=== PATIENT | female | born 2000 | race African-American/Black ===

== ENCOUNTER 2025-01-03 15:40 | Emergency (ER) | payer MEDICAID, SELFPAY ==
[2025-01-03 16:02] VITALS: BP 125/81; PULSE 71; RESP 16; TEMP 36.7; O2SAT 100
--- NOTE | 2025-01-03 16:10 | ED.GENADULT ---
HPI - General Adult General Chief complaint: Dental/Oral Stated complaint: Dental History of Present Illness HPI narrative: Genny Hercules Is a 24-year-old female who presents today with complaints of right upper tooth pain that started 2 days ago and woke up today swelling and increased pain to her upper gums. patient denies any fevers or chills denies difficulty swallowing. States that she has not seen a dentist in several years. Related Data Allergies Allergy/AdvReac Type Severity Reaction Status Date / Time No Known Allergies Allergy Verified 01/03/25 16:07 Review of Systems Review of Systems: All systems reviewed & are unremarkable except as noted in HPI and below Exam Narrative: GENERAL: Well-appearing, well-nourished, and in no acute distress. HEAD: Normocephalic, atraumatic. EYES: PERRLA and EOMI. ENT: Nares clear, no rhinorrhea or epistaxis. Mucous membranes moist. Oropharynx without tonsillar hypertrophy exudate or other lesions. + dental decay to right Molar #1, #3, and #4 NECK: Supple. No adenopathy or masses. No carotid bruits or JVD CHEST: Clear to auscultation. No respiratory distress. No wheezes rales or rhonchi HEART: Regular rate and rhythm. No murmur heard. Normal peripheral pulses. EXTREMITIES: Normal range of motion. No edema. SKIN: Warm, dry, no rash. NEURO: No focal deficits. Alert and oriented x3. PSYCH: Normal mood and affect. Course Course Level of Care: Express Care Visit Vital Signs Vital signs: Vital Signs Temperature 36.7 C 01/03/25 16:02 Pulse Rate 71 01/03/25 16:02 Respiratory Rate 16 01/03/25 16:02 Blood Pressure 125/81 01/03/25 16:02 Pulse Oximetry 100 01/03/25 16:02 Oxygen Delivery Room Air 01/03/25 16:02 Temperature 36.7 C 01/03/25 16:02 Pulse Rate 71 01/03/25 16:02 Respiratory Rate 16 01/03/25 16:02 Blood Pressure 125/81 01/03/25 16:02 Pulse Oximetry 100 01/03/25 16:02 Oxygen Delivery Room Air 01/03/25 16:02 Medical Decision Making [facility] Narrative Medical decision making narrative: Patient with worsening dental pain and dental decay. No palpable abscess. No systemic signs or symptoms. Antibiotics course provided. Patient is so will start pt on Amoxicillin Follow-up instructions given for dental/oral surgery clinics. Patient was given return precautions and discharged home in stable condition. Pulse oximetry interpretation: not hypoxic. Disposition: Discharge to home in stable condition. Impression: Acute dental pain, likely due to dental caries. Medical Records Medical records reviewed: Yes I reviewed the external patient's medical records. Vital Signs Vital Signs: Vital Signs Temperature 36.7 C 01/03/25 16:02 Pulse Rate 71 01/03/25 16:02 Respiratory Rate 16 01/03/25 16:02 Blood Pressure 125/81 01/03/25 16:02 Pulse Oximetry 100 01/03/25 16:02 Oxygen Delivery Room Air 01/03/25 16:02 Temperature 36.7 C 01/03/25 16:02 Pulse Rate 71 01/03/25 16:02 Respiratory Rate 16 01/03/25 16:02 Blood Pressure 125/81 01/03/25 16:02 Pulse Oximetry 100 01/03/25 16:02 Oxygen Delivery Room Air 01/03/25 16:02 VItals reviewed by me Discharge Plan Discharge Clinical Impression: Toothache, Dental caries Patient Disposition: Home, Self-Care Condition: Stable Instructions: Antibiotic Form Additional Instructions: Start the Amoxicillin twice daily for 10 days You may try Orajel from over the counter to help with the pain Start taking the Tylenol for pain You may apply warm compresses to the area to help with the inflammation Call to make an appointment with a dentist as discussed Patient Language: Kazakh Prescriptions: New amoxicillin 500 mg capsule 500 mg PO Q12H Qty: 20 0RF acetaminophen [Acetaminophen Extra Strength] 500 mg tablet 1,000 mg PO Q6H PRN (Reason: pain) Qty: 30 0RF Follow-up/Referrals: PHYSICIAN,INSPECTION AND TESTING SUPERVISOR [Primary Care Provider] - Stand Alone Forms: Work/School Release IP Time of Disposition: 16:17
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
--- OUTSIDE RECORDS SUMMARY | 2025-01-03 16:15 | XMS_ITS | Referral Summary ---
Author Organization [facility] Address [address] [place] [address] Care Team Providers Care Press Operator Automatic Name Role Phone Unavailable Primary Care Provider Unavailabl e Source Comments [facility],non-owned Affiliates and Associated Physician Practices is amultiple site organization consisting of ambulatory clinics and hospital sitesin [place] and [place]. This disclosure is being madepursuant to the Care Everywhere program and may not contain all information available regarding this patient. Last updated 18.[facility] Encounters Date Type Department Care Team Description 11/14/2024 2:49 PM METAL PAINTER - 11/14/2024 4:21 PM METAL PAINTER Hospital Encounter [facility] [address] [place] [address] Cony Clinton MD Discharge Disposition: Home or Self Care from Last 3 Months Allergies Active Allergy Reactions Criticality Noted Date Comments [place] Rash,Swelling Medium 10/18/2023 Medications * Be aware [...] Trichomonas infection 06/30/2024 Overview (09/08/2024): Did not picker Rx sent in May ERx sent [...] 02/14/2021 06/24/2024 Encounter for ultrasound 02/14/2021 06/24/2024 Immunizations Name Administration Dates Next Due MMR 06/13/2021() TDAP (7yrs+) 06/13/2021(Deferred: See Comments - Perpt, she already received) Social History Tobacco Use Types Packs/Day Years [...] care, and heating? Not very hard 11/14/2024 [facility] - Occupational [...] place to sleep or slept in a snf (including now)? No 06/24/2024 [place] Depression Scale Answer Date Recorded [place] Depression Scale Total 1 06/24/2024 The thought [...] any time in the past 12 m [facility], were you homeless or living in a snf (including now)? No 11/14/2024 Estimated Date of Delivery Comme nts Yes 12/16/2024 Based on last me nstrual period of 03/11/2024 Sex and Gender Information Value Date Recorded Sex Assigned at Not on file Gender Identity Not on file Sexual Orientation Not on file Last Filed Vital Signs Vital Sign Reading Time Taken Comments Blood Pressure 127/74 11/14/2024 3:31 PM METAL PAINTER Pulse 76 11/14/2024 3:00 PM METAL PAINTER Temperature 37.1 ??C (98.8 ??F) 11/14/2024 3:00 PM CS T Respiratory Rate 19 11/14/2024 3:00 PM METAL PAINTER Oxygen Saturation 99% 11/14/2024 3:00 PM METAL PAINTER Inhaled Oxygen Concentration - - Weight 56.7 kg (125 lb) 09/08/2024 2:01 PM CDT Height 157.5 cm (5' 2 ) 06/24/2024 1:05 PM CDT Body Mass Index 22.86 06/24/2024 1:05 PM CDT Functional Status Functional Status Response Date of Assess ment Is person deaf or have serious hearing difficult y? No 11/14/2024 Is person blind or have serious difficulty seein g? No 11/14/2024 Does person have serious dif ficulty walking/climbing stairs? No 11/14/2024 Does person have difficulty dressing/bathing? No 11/14/2024 Does person have difficulty doing errands alone? No 11/14/2024 Cognitive Status Response Date of Assessm ent Does person have difficulty concentrating/remembering/making decisions? No 11/14/2024 Plan of Treatment Upcoming Encounters Date Type Department Care Team (Late st Contact Info) Description 01/25/2025 Hospital Encounter [facility] [address] [place] [address] Procedures Procedure Name Priority Date/Time Associated Diagnosis Comments IMAGING/RADIOLOGY/XR AY RESULTS ORDER 11/15/2024 11:56 PM METAL PAINTER NONSTRESS TEST Routine 11/14/2024 4:18 PM METAL PAINTER TRICHOMONAS RAPID TEST Routine 11/14/2024 3:55 PM METAL PAINTER Supervision of other normal , antepartum (HCC) CHLAMYDIA + GC AMPLIFIED PROBE STAT 11/14/2024 3:55 PM METAL PAINTER Supervision of other normal , antepartum (HCC) [...] RADIOLOGY XRAY RESULTS ORDER (11/15/2024 11:56 PM METAL PAINTER) Anatomical Region Laterality Modality Other Narrative 11/15/2024 11:56 PM METAL PAINTER Ordered by an unspecified provider. Scanned Document IMAGING * NONSTRESS TEST (11/14/2024 4:18 PM METAL PAINTER) Narrative Irene Draper MD - 11/14/2024 4:18 PM METAL PAINTER Marce Cleary, DO ? 11/14/2024 ??4:25 PM [...] OTHER INFORMATION Jennie Anderson RN Non-Stress Test [facility] Patient Name: Genny Hercules LMP: Patient's last menstrual period was 03/11/2024. Gestational Age: 35w3d as of 11/14/2024 Estimated Date of Delivery: 12/16/24 Indications: Leakage of fluid in NST date: 11/14/2024 NST duration: >20 mins Interpretation: NST: baseline 130 bpm, moderate variability, reactive, no decelerations [place]: no contractions Impression and Plan: FWB reassuring, continue monitoring as scheduled. Marce Cleary, 11/14/2024 4:25 PM Cony Clinton MD OB GYNE ORDERABLES * CHLAMYDIA + GC AMPLIFIED PROBE (11/14/2024 3:55 PM METAL PAINTER) Chlamydia Amplified Probe Negative Negative 11/15/2024 12:16 AM METAL PAINTER [facility] GC Amplified Probe Negative Negative 11/15/2024 12:16 AM METAL PAINTER [facility] Microbiology ENTIRE VAGINA / Unknown Collection / Unknown 11/14/2024 3:55 PM METAL PAINTER 11/14/2024 4:00 PM METAL PAINTER Narrative [facility] - 11/15/2024 12:16 AM METAL PAINTER Results based on detection/no detection of ribosomal RNA by amplified method. Cony Clinton MD LAB - MICROBIOLOGY O RDERABLES Performing Organization Address City/[facility]/ZIP Co de Phone Number [facility] [address] [phone] * TRICHOMONAS RAPID TEST (11/14/2024 3:55 PM METAL PAINTER) Trichomonas Rapid Test Negative Negative 11/14/2024 4:15 PM METAL PAINTER [facility] Microbiology VAGINAL SWAB / Unknown Collection / Unknown 11/14/2024 3:55 PM METAL PAINTER 11/14/2024 4:00 PM METAL PAINTER Cony Clinton MD LAB - MICROBIOLOGY O RDERABLES Performing Organization Address City/[facility]/ZIP Co de Phone Number [facility] [address] [place] [address] * PAP IG LB RFLX HPV APTIMA ASCU (06/24/2024 1:16 PM CDT) Diagnosis Comment 06/29/2024 1:09 PM CDT [facility] ([facility]) Comment: NEGATIVE FOR INTRAEPITHELIAL LESION OR MALIGNANCY. TRICHOMONAS VAGINALIS IS PRESENT. FUNGAL ORGANISMS MORPHOLOGICALLY CONSISTENT WITH LASHAUN SPECIES ARE PRESENT. Specimen Adequacy Comment 024 1:09 PM CDT [facility] ([facility]) Comment: Satisfactory for evaluation. ??Endocervical and/or squamous metaplastic cells (endocervical component) are present. Performed by Comment 06/29/2024 1:09 PM CDT [facility] ([facility]) Comment:Arun Soto totechnologist (ASCP) Comment . 06/29/2024 [...] Automation Comment 06/29/2024 1:09 PM CDT [facility] ([facility]) Comment: This liquid based ThinPrep(R) pap test was screened with the use of an image guided system. Note Comment 06/29/2024 1:09 PM CDT [facility] ([facility]) Comment: The HPV DNA reflex criteria were not met with this specimen result therefore, no HPV testing was performed. Pathology/Cytolo gy ENTIRE ENDOCERVIX / Unknown Collection / Unknown 06/24/2024 1:16 PM CDT 06/24/2024 2:47 PM CDT Narrative [facility] ([facility]) - 06/29/2024 1:09 PM CDT Performed at: ??01 - [facility] [id number] [place] [address], [place], [place] ??[id number] Play Writer: Ross Barrera MD, Phone: ??[phone] Performed at: ??02 - [facility] [address] ??[id number] Play Writer: Rosenda Chicas MD, Phone: ??[phone] Specimen Comment: Source.............Endocervix Specimen Comment: No. of containers..01 ThinPrep Vial Jessica Kelley ASSET ANALYST-[facility] - PATHOLOGY /CYTOLOGY ORDERABLES [facility] ([facility]) [address] [place] [address] * HIV-1 HIV-2 ANTIBODY + HIV P24 AG PANEL (06/24/2024 1:16 PM CDT) HIV1/2 Ab + P24 Ag Non Reactive Non Reactive 06/24/2024 3:29 PM CDT [facility] Blood BLOOD SPECIMEN / Unknown Venipuncture / Unknown 06/24/2024 1:16 PM CDT 06/24/2024 2:49 PM CDT Narrative [facility] - 06/24/2024 3:29 PM CDT No Laboratory evidence of HIV infection. Jessica Kelley ASSET ANALYST-[facility] - CHEMISTRY ORDERABLES Performing Organization Address City/[facility] Co de Phone Number [facility] [address] [place] [phone] * HEPATITIS C ANTIBODY (06/24/2024 1:16 PM CDT) HCV Antibody Screen Non Reactive Non Reactive 06/24/2024 3:29 PM CDT [facility] Blood BLOOD SPECIMEN / Unknown Venipuncture / Unknown 06/24/2024 1:16 PM CDT 06/24/2024 2:49 PM CDT Narrative [facility] - 06/24/2024 3:29 PM CDT Non Reactive - Antibodies to Hepatitis C virus (HCV) were not detected, result does not exclude early acute HCV infection. Jessica Kelley ASSET ANALYST-[facility] - CHEMISTRY ORDERABLES [facility] [address] [place] [address] from Last 3 Months or Most Recently Relevant to Health Maintenance Advance Directives * Full Code (Latest Code Status on File) Date Activated Date Inactivated Comments 06/11/2021 12:06 AM 06/14/2021 3:50 PM * Full Code Date Activated Date Inactivated Comments 06/08/2021 3:37 PM 06/11/2021 12:06 AM
--- OUTSIDE RECORDS SUMMARY | 2025-01-03 16:15 | XMS_ITS | Referral Summary ---
Author Organization [facility] Address [address] [place] [phone] Care Team Providers Care Senior Editor Name Role Phone No, Physician Primary Care Provider [phone] Encounters Date Type Department Care Team Description 12/24/2024 Telephone [facility] [address] [place] [address] Outpatient Health 3rd Floor [address] [place] [phone] Vicenta Dietz 12/17/2024 Telephone [facility] [address] [place] [address] [place] [phone] Marisa Flores MD 12/14/2024 Telephone [facility] [address] [place] [address] Floor [address] [place] [phone] Vicenta Dietz 12/09/2024 6:35 AM KNUCKLER - 12/12/2024 1:01 PM KNUCKLER Hospital Encounter [address] [phone] Epi Guzman MD Russell, Sharman Maurissa, MD Tsai, Stephanie Marie, MD Encounter for induction of labor (Primary Dx) Discharge Disposition: Discharge to home or self care 12/09/2024 11:30 PM KNUCKLER Anesthesia Event [address] [phone] Earl Padilla MD Huang, Dake MD 12/07/[address] [phone] Martina Garcia RN Scheduled Induction 12/03/2024 2:00 PM KNUCKLER Office Visit [facility] [address] [place] [address] 3rd Floor [address] [place] [phone] Martine De Santiago MD , unspecified gestational age (Primary Dx); Trichomonal vulvovaginitis; RESOLVED - affected by growth restriction; Hx of preeclampsia, prior , currently ; Encounter for supervision of normal , antepartum, unspecified ; Anemia, unspecified type 11/26/2024 1:34 PM KNUCKLER - 11/26/2024 11:59 PM KNUCKLER Hospital Encounter [facility] - Ultrasound [address] [place] [phone] affected by growth restriction Discharge Disposition: Discharge to home or self care 11/26/2024 2:30 PM KNUCKLER Office Visit [facility] [address] [place] [address] Floor [address] [place] [phone] Irma Siu MD Encounter for supervision of normal , antepartum, unspecified (Primary Dx); Hx of preeclampsia, prior , currently ; affected by growth restriction 11/19/2024 12:25 PM KNUCKLER - 11/19/2024 11:59 PM K[facility]CKLER Hospital Encounter [facility] - Ultrasound [address] [place] [phone] affected by growth restriction Discharge Disposition: Discharge to home or self care 11/19/2024 2:00 PM KNUCKLER Office Visit [facility] [address] [place] [address] Floor [address] [place] [phone] Feliciano Parry MD Encounter for supervision of normal , antepartum, unspecified (Primary Dx) 11/14/2024 9:54 AM KNUCKLER - 11/14/2024 1:24 PM K[facility]CKLER Hospital Encounter [address] [phone] Epi Guzman MD Discharge Disposition: Discharge to home or self care 11/05/2024 10:21 AM KNUCKLER - 11/05/2024 11:59 PM KNUCKLER Hospital Encounter [facility] - Ultrasound [address] [place] [phone] Poor growth affecting management of mother, antepartum, fetus 1 of multiple gestation Discharge Disposition: Discharge to home or self care 11/02/2024 2:30 PM KNUCKLER Procedure visit [facility] [address] [place] [address] Floor [address] [place] [phone] affected by growth restriction (Primary Dx) 10/22/2024 12:30 PM KNUCKLER - 10/22/2024 11:59 PM KNUCKLER Hospital Encounter [facility] - Ultrasound [address] [place] [phone] Poor growth affecting management of mother, antepartum, fetus 1 of multiple gestation Discharge Disposition: Discharge to home or self care 10/22/2024 1:00 PM KNUCKLER Procedure visit [facility] [address] [place] [address] Floor [address] [place] [phone] Encounter for supervision of normal , antepartum, unspecified 10/22/2024 1:30 PM KNUCKLER Office Visit [facility] [address] [place] [address] Floor [address] [place] [phone] Irma Siu MD , unspecified gestational age (Primary Dx); affected by growth restriction; Hx of preeclampsia, prior , currently ; Supervision of normal first , antepartum; Trichomonal vulvovaginitis; Anemia, unspecified type 10/14/2024 1:30 PM KNUCKLER Procedure visit [facility] [address] [place] [address] Floor [address] [place] [phone] affected by growth restriction (Primary Dx) 10/08/2024 6:23 PM KNUCKLER - 10/08/2024 11:59 PM KNUCKLER Hospital Encounter [address] [phone] Discharge Disposition: Discharge to home or self care 10/08/2024 Orders Only [facility] [address] [place] [address] 3rd Floor [address] [place] [phone] Adelina Herrera NP 10/08/2024 1:00 PM KNUCKLER Initial [facility]etric[facility] Clinic [address] [place] [address] 3rd Floor [address] [place] [phone] Adelina Herrera NP GA: 30w1d 10/06/2024 8:38 AM KNUCKLER - 10/06/2024 11:59 PM KNUCKLER Hospital Encounter [facility] - Ultrasound [address] [place] [phone] Poor growth affecting management of mother, antepartum, fetus 1 of multiple gestation (Primary Dx); state, incidental Discharge Disposition: Discharge to home or self care from Last 3 Months Allergies Active Allergy Reactions Criticality Noted Date Comments [place] Swelling,Rash Medium 10/18/2023 Medications aspirin 81 mg enteric coated tabletIndicatio ns:Encounter for supervision of normal , antepartum, unspecified Take 1 tablet (81 mg total) by mouth daily 30 tablet 11 4 10/08/20 25 Active ferrous sulfate 325 mg (65 mg of elemental iron) tabletIndicatio ns:Iron Deficiency Anemia Take 1 tablet (325 mg total) by mouth daily 30 tablet 11 5 12/13/19 26 Active acetaminophen 500 mg capsule Take 2 capsules (1,000 mg total) by mouth every 6 (six) hours as needed for pain 120 tablet 5 01/11/20 25 Active docusate sodium (COLACE) 100 mg capsuleIndicati ons:constipatio n,Stool Softener Take 1 capsule (100 mg total) by mouth 2 (two) times a day 60 capsule 5 01/11/20 25 Active ibuprofen (ADVIL,MOTRIN) 600 mg tabletIndicatio ns:Cramps Take 1 tablet (600 mg total) by mouth every 6 (six) hours as needed for pain 90 tablet 5 01/11/20 Active PNV with lpkozxy-wubi-WN 27 mg iron- 1 mg tabletIndicatio ns:Vitamin Deficiency Prevention Take 1 tablet by mouth daily 30 tablet 5 01/12/20 Active polyethylene glycol (MIRALAX) 17 gram/dose bulk powderIndicatio ns:constipation Take 17 g by mouth daily 510 g 5 01/11/20 Active RNB78-cpra cb,bx-fzuts-owl -dha 27-1-50-250 mg combo pack Take 1 tablet by mouth 12/12/19 Discontinu ed(Stop Taking at Discharge) ferrous sulfate 325 mg (65 mg of elemental iron) tabletIndicatio ns:Iron Deficiency Anemia Take 1 tablet (325 mg total) by mouth daily with breakfast 30 tablet 11 4 12/12/19 Discontinu ed(Stop Taking at Discharge) Active Problems Problem Noted Date Diagnosed Date care following vaginal delivery 12/10 Overview (12/12/2024): # ID: Afebrile. No signs/symptoms of infection. -- #VZV NI: for varivax PP -- #HPV vaccination: Does not recall receiving HPV vaccine. Will give first dose on prior to dc. # Heme: QBL 519 mL. Hemodynamically stable. #Anemia: Admit hgb 9.1. For iron on discharge. # CV/Pulm: -- #Gestational hypertension #Hx of PreE- Blood pressures well controlled on no meds. Asymptomatic, denies MCELROY/RUQ pain/vision changes. CBC/CMP wnl, UPC 0.122. To be enrolled in remote blood pressure monitoring, consent signed, order placed, she did confirm receipt of text. # GI/: Tolerating PO. Voiding spontaneously. # Pain: Controlled with above regimen. # MOC: Depo-provera, administered. # MOF: Both formula and . Urine drug screen not indicated. Patient informed of results: N/A. # Post DVT prophylaxis: The patient has the following MAJOR risk factors none and the following MINOR risk factors parity >/=3. SCDs ordered for VTE prophylaxis. # Disposition: Follow up task not sent. Desires discharge home today. Encounter for induction of labor 12/09/2024 Overview (12/09/2024): Genny Hercules is a 24 y.o. female at 39w0d who is dated by 1st trimester ultrasound and is being admitted for an elective induction of labor. Admit to L&D: Consents signed and placed in chart. Labs: CBC and T&S pending. Induction of labor with Misoprostol . FWB: Continuous monitoring. Reactive NST. ID: 3rd trimester HIV (>28 wga) negative on 10/08. GBS negative on 10/08 bacteruria. Will start penicillin . RPR on admission: pending. History of genital HSV or HSV 1/2 seropositivity: No. Membrane Status: intact. Indications for UDS: none. Verbal consent obtained for UDS: Not indicated. MOF: Plans to both breast and formula feed. Urine drug screen not indicated. Patient informed of results: N/A. MOC: Plans to use DMPA for contraception. Pain management: Undecided on epidural. Post DVT prophylaxis: The patient has the following MAJOR risk factors none and the following MINOR risk factors parity >/=3. SCDs will be ordered for VTE prophylaxis . #H/o PreEwSF in G1: Baseline CBC/CMP WNL, UPC 0.122. On ASA 81 mg daily. Obtained repeat CBC/CMP on admission. #Anemia: Normal hemoglobin electrophoresis. Continue PO iron supplementation. #VZV non-immune: For Varivax . #H/o Trichomonas: Patient endorsed not taking treatment. Rapid Trich Test on 11/14 was negative. Repeat ordered on admission. Anemia 10/08/2024 Overview (11/27/2024): History - Hemoglobin 9.8 g/dL on 10/08/24 - MCV 86 fL - Hemoglobin electrophoresis normal pattern - Ferritin 34 S/p counseling Plan: - continue PO iron, tolerating Hx of preeclampsia, prior , currently p regnant 10/07/2024 Overview (10/23/2024): Hx preeclampsia with severe features in G1 Chart review performed 10/22, no evidence of cHTN (one MR BP in ED for vomiting) Baseline labs: Hgb 9.8, PLT 292, Cr 0.61, AST/ALT , UPC 0.122 (10/08/24) Plan: - continue bASA - continue BP monitoring at home Encounter for supervision of normal , a ntepartum 10/06/2024 Overview (12/03/2024): 1st Trimester: [x] Dating Criteria: 1T If < 8w6d (change due date if >5d difference). If 9w0d to 15w6d (change due date if > 7d difference) [x] Labs: Rh pos, Ab neg, CBC 9.8, Rubella IM, VZV NI, HIV NR, RPR NR, HepBSAg NR, Hep C Ab NR [x] GC/CT/Trich: Trich pos [x] UCx: GBSuria [x] vitamins [x] Genetic Screening: s/p LR NIPT at [facility] . [x] CF/SMA carrier screening: deferred [x] Hgb electrophoresis: normal pattern [x] Pap: NILM [] PNBHS referral (if indicated) EPDS: [x] ASA at 12 weeks (if indicated) [x] DM screening: HgbA1c 5.2 (5.7-6.4: no further test until 2T screen, 6.5 or greater: refer to CDP) [] Feeding Preferences Survey: benefits of discussed with patient and partner at RN IOB 2nd Trimester: [x] Anatomy ultrasound: FGR (AC 8%), see separate problem. Otherwise wnl [x] Placenta: posterior [x] CBC/RPR: Hgb 9.8, RPR NR [x] 1hr GTT (24-28wks): wnl [x] Flu Shot (Sep-Dec): 10/22/24 [x] Tdap (27-36wks): 10/08/24 [x] Rhogam (if Rh neg): not indicated [] Childbirth classes discussed [] Second/Third trimester education packet given: (Date) [] education (colostrum, expected breast changes, plan for RTW) [] Breast pump order form provided (Date) Educated insurance will release 30 days prior to due date 3rd Trimester: [x] CBC/HIV/RPR/T&S: HIV NR, RPR NR 10/08 [x] GBS: GBSuria 10/08 [x] GC/CT/Trich (if indicated): neg/neg/trich positive [x] RSV Vaccine (32-36w6d, Sep-Dec): given 10/22 [] Final discussion (Baby Friendly, Skin to Skin, PP LC Support) Counseling: [x] Method of delivery: anticipate vaginal [] Bottle of CHG 4% and hand out provided @ 36wks (if planned) [x] Timing of delivery: 39 week rrIOL scheduled 12/09 at 0600 [x] MOC: DMPA [x] MOF: both [] Virtual 2 week visit candidate ([place] resident, 1-2nd degree perineal laceration, minimal /delivery/ complications) [] education: completed in all 3 trimesters [x] Manager Hospice: list given 12/03 [x] Car seat discussed [] PP depression counseling Trichomonal vulvovaginitis 10/06/2024 Overview (12/03/2024): Trich + in [facility] 09/27/24, Rx metronidazole sent. Patient completed course. Trich neg at [facility] on 11/14/24 RESOLVED - affected by growth re striction 10/06/2024 Overview (12/03/2024): FGR diagnosed @ 29w6d: EFW 1290g (12%), AC 8%. BPP 07/08, normal dopplers. RESOLVED 11/26: EFW 17%, AC 20% S/p counseling Plans for 39 week rrIOL - scheduled 12/09 Resolved Problems Problem Noted Date Diagnosed Date Resolved Date Hx of pre-eclampsia in prior , currently 06/24/2024 10/07/2024 Overview (10/06/2024): - Baseline HTN Labs Plt: K+: Cr: ALT/AST: UPC: needs - Rx Aspirin 81 mg take 1 tablet daily 12-36 weeks gestation. Needs RX - Educated on ASA daily for Pre-Eclampsia prevention, Pre-Eclampsia leading to Eclampsia, Placental abruption, maternal and or morbidity/mortality. - Weekly NST starting at 32 weeks (if delivered < 37 weeks for Pre-Eclampsia). -Deliver 39-40 weeks. (spontaneous vaginal delivery) 08/05/2022 10/06/2024 History of pre-eclampsia in prior , currently in third trimester 08/04/2022 History of hemorr jeyson, currently in third trimester 08/04/2022 08/05/2022 Overview (08/04/2022): Transfused 1 unit per old records 39 weeks gestation of 08/04/2022 08/05/2022 Immunizations Name Administration Dates Next Due HPV9 12/12/2024 Influenza, Trivalent, Preser vative Free, Intramuscular 10/22/2024 RSV, Bivalent, Protein Subun it Rsvpref, Diluent (Abrysvo) 10/22/2024 Tdap 10/08/2024 Varicella 12/11/2024(Deferred: Patient Ref used) Social History Tobacco Use Types Packs/Day Years Used Date Smoking Tobacco: Never Tobacco Cessation:Counseling Given: No Alcohol Use Standard Drinks/Week Comments Not Currently 0 (1 standard drink = 0.6 oz pur e alcohol) [facility] Utilities Answer Date Recorded In the past 12 months has SCADA Access, gas, oil, or water [employer] threatened to shut off services in your home? No 12/11/2024 Social Connection and Isolat ion Panel [NHANES] Answer Date Recorded In a typical week, how many times do you talk on the phone with family, friends, or neighbors? More than three times a week 12/11/2024 How often do you get togethe r with friends or relatives? More than three times a week 12/11/2024 How often do you attend chur ch or yarsanism services? Never 12/11/2024 Do you belong to any clubs o r organizations such as uatsdin groups, unions, fraternal or athletic groups, or school groups? No 12/11/2024 How often do you attend meet ings of the clubs or organizations you belong to? Never 12/11/2024 Are you , , di vorced, , never , or living with a partner? Never 12/11/2024 AUDIT-C Answer Date Recorded Q1: How often do you have a drink containing alc ohol? Never 08/04/2022 Average Number of Drinks Not on file 022 Frequency of Binge Drinking Not on file 03/2022 Overall Financial Resource Strain (CARDIA) Answe r Date Recorded How hard is it for you to pa y for the very basics like food, housing, medical care, and heating? Not hard at all 12/11/2024 Hunger Vital Sign Answer Date Recorded Within the past 12 months, y ou worried that your food would run out before you got the money to buy more. Never true 12/11/19 25 Within the past 12 months, t he food you bought just didn't last and you didn't have money to get more. Never true 12/11/2024 PRAPARE - Transportation Answer Date Re corded In the past 12 months, has l ack of transportation kept you from medical appointments or from getting medications? No 12/01 In the past 12 months, has l ack of transportation kept you from meetings, work, or from getting things needed for daily living? No 12/11/2024 [place] Depression Scale Answer Date Recorded [place] Depression Scale Total 3 10/08/2024 The thought of harming myself has occurred to me . Never 10/08/2024 Housing Stability Vital Sign Answer Robert e Recorded In the last 12 months, was t here a time when you were not able to pay the mortgage or rent on time? No 12/11/2024 In the past 12 months, how m any times have you moved where you were living? 0 12/11/2024 At any time in the past 12 m [facility], were you homeless or living in a care home (including now)? No 12/11/2024 Personal Safety Answer Date Recorded Have you ever been in or are you currently in a harmful physical or emotional relationship or is someone making you feel afraid or unsafe? Denies 12/09/2024 Comments No Sex and Gender Information Value Date Recorded Sex Assigned at Not on file Legal Sex Female 7:16 PM KNUCKLER Gender Identity Not on file Sexual Orientation Not on file Last Filed Vital Signs Vital Sign Reading Time Taken Comments Blood Pressure 123/66 12/12/2024 9:54 AM KNUCKLER Pulse 74 12/12/2024 9:54 AM KNUCKLER Temperature 36.5 ??C (97.7 ??F) 12/12/2024 9:54 AM CS T Respiratory Rate 16 12/12/2024 9:54 AM KNUCKLER Oxygen Saturation 97% 12/12/2024 9:54 AM KNUCKLER Inhaled Oxygen Concentration - - Weight 66.5 kg (146 lb 11.2 oz) 12/09/2024 7:11 AM KNUCKLER Height 163 cm (5' 4.17 ) 12/09/2024 7:11 AM KNUCKLER Body Mass Index 25.05 12/09/2024 7:11 AM KNUCKLER Plan of Treatment Not on file Procedures Procedure Name Priority Date/Time Associated Diagnosis Comments NC AN PROCEDURE PLACEHOLDER Routine 12/09/2024 11:39 PM KNUCKLER US OB LIMITED IP Routine 12/09/2024 11:13 AM KNUCKLER Encounter for induction of labor TRICHOMONAS VAGINALIS PCR Routine 12/09/2024 9:06 AM KNUCKLER CBC WITHOUT DIFFERENTIAL STAT 12/09/2024 7:47 AM KNUCKLER TYPE AND SCREEN STAT 12/09/2024 7:47 AM KNUCKLER RPR STAT 12/09/2024 7:47 AM KNUCKLER US OB LIMITED Schedule Routine, Read Routine (OP Routine) 11/26/2024 1:34 PM KNUCKLER affected by growth restriction US OB LIMITED Schedule Routine, Read Routine (OP Routine) 11/19/2024 12:25 PM KNUCKLER affected by growth restriction PAMG-1 PROTEIN MARKER (ROM) Routine 11/14/2024 11:42 AM KNUCKLER US OB LIMITED Schedule Routine, Read Routine (OP Routine) 11/05/2024 10:21 AM KNUCKLER Poor growth affecting management of mother, antepartum, fetus 1 of multiple gestation US OB LIMITED Schedule Routine, Read Routine (OP Routine) 10/22/2024 12:32 PM KNUCKLER Poor growth affecting management of mother, antepartum, fetus 1 of multiple gestation PROTEIN / CREATININE RATIO, URINE, RANDOM Routine 10/08/2024 6:23 PM KNUCKLER Encounter for supervision of normal , antepartum, unspecified URINE CULTURE Routine 10/08/2024 4:03 PM KNUCKLER Encounter for supervision of normal , antepartum, unspecified EGFR Routine 10/08/2024 3:07 PM KNUCKLER Encounter for supervision of normal , antepartum, unspecified COMPREHENSIVE METABOLIC PANEL Routine 10/08/2024 3:07 PM KNUCKLER Encounter for supervision of normal , antepartum, unspecified GTT 50GM 1HR GESTATIONAL SCREEN Routine 10/08/2024 3:07 PM KNUCKLER Encounter for supervision of normal , antepartum, unspecified FERRITIN Routine 10/08/2024 3:07 PM KNUCKLER Encounter for supervision of normal , antepartum, unspecified CBC WITHOUT DIFFERENTIAL Routine 10/08/2024 3:07 PM KNUCKLER Encounter for supervision of normal , antepartum, unspecified HEMOGLOBIN A1C Routine 10/08/2024 3:07 PM KNUCKLER Encounter for supervision of normal , antepartum, unspecified TYPE AND SCREEN Routine 10/08/2024 3:07 PM KNUCKLER Encounter for supervision of normal , antepartum, unspecified HEMOGLOBIN ANALYSIS BY ELECTROPHORESIS Routine 10/08/2024 3:07 PM KNUCKLER Encounter for supervision of normal , antepartum, unspecified HEPATITIS B SURFACE ANTIGEN Routine 10/08/2024 3:07 PM KNUCKLER Encounter for supervision of normal , antepartum, unspecified HEPATITIS C ANTIBODY Routine 10/08/2024 3:07 PM KNUCKLER Encounter for supervision of normal , antepartum, unspecified HIV 1/2 ANTIBODY PLUS P24 ANTIGEN Routine 10/08/2024 3:07 PM KNUCKLER Encounter for supervision of normal , antepartum, unspecified RUBELLA IGG Routine 10/08/2024 3:07 PM KNUCKLER Encounter for supervision of normal , antepartum, unspecified VARICELLA ZOSTER ANTIBODY, IGG Routine 10/08/2024 3:07 PM KNUCKLER Encounter for supervision of normal , antepartum, unspecified RPR Routine 10/08/2024 3:07 PM KNUCKLER Encounter for supervision of normal , antepartum, unspecified US OB 14 WEEKS OR OVER Schedule Routine, Read Routine (OP Routine) 10/06/2024 8:38 AM KNUCKLER state, incidental N. GONORRHOEAE/C. TRACHOMATIS AMPLIFICATION STAT 09/27/2024 1:26 PM CDT from Last 3 Months or Most Recently Relevant to Health Maintenance Results * NC AN PROCEDURE PLACEHOLDER (12/09/2024 11:39 PM KNUCKLER) Narrative Earl Padilla MD - 12/09/2024 11:39 PM KNUCKLER Earl Padilla MD ? 12/09/2024 11:40 PM CSE Block Patient location during procedure: L&D Reason for block: labor analgesia Staffing: Supervising provider: Earl Padilla MD Placed by: Resident: Amada Kennedy MD Preprocedure Prep: Preprocedure checklist: patient identified, procedure contraindications assessed, procedure consent, IV checked, risks, benefits and alternatives discussed, monitors and equipment checked and timeout performed Patient position: sitting Procedure performed while patient: awake Monitoring: ECG, oximetry and blood pressure Prep solution: chlorhexidine/alcohol PPE: provider hat/mask, sterile gloves and sterile drape Skin infiltrated with lidocaine 1%: yes CSE: Approach: midline Location: L3-4 Number of attempts: 1 Epidural Needle: Injection technique: EDISON saline Needle type: Tuohy Needle gauge: 18 G Needle length: 9 cm Loss of resistance: 5 cm Spinal Needle: Needle type: Randee Edison. Needle gauge: 25 Needle insertion: through epidural needle and positive CSF aspiration Catheter: Catheter type: multi-orifice and wire bound Catheter at skin depth: 10 Test dose: negative ?? Assessment: Sensory level - left: full eval pending Sensory level - right: full eval pending Events: patient tolerated procedure well with no complications us Earl Padilla MD ANESTHESIA ORDERABLES Marilu l Result * US Ob Limited (12/09/2024 11:13 AM KNUCKLER) Anatomical Region Laterality Modality Abdomen N/A Ultrasound Narrative 12/09/2024 11:13 AM KNUCKLER Vertex I have reviewed the images and agree with above. Joleen Montano MD Joleen Montano MD IMG OB US PROCEDURES Final Result * Trichomonas vaginalis PCR Urine (12/09/2024 9:06 AM KNUCKLER) Trichomonas DNA Not Detected Not Detected [facility] Comment: Interpretive Data This assay detects Trichomonas vaginalis by nucleic acid amplification testing (NAAT). This assay has been cleared by the [place] Food and Drug administration. The performance characteristics of this test have been verified by the [facility] laboratory. Excess blood in specimens may be inhibitory and result in false negative results. ??The performance of this test has not been evaluated in women or individuals less than 18 years of age. Current Interpretive Data last revised 2023. Urine 12/09/2024 9:06 AM KNUCKLER 12/09/2024 9:15 AM KNUCKLER Joleen Montano MD LAB MICROBIOLOGY - G ENERAL ORDERABLES Final Result [facility] Department [place] [address] [facility] * RPR Blood (12/09/2024 7:47 AM KNUCKLER) [facility] RPR Nonreactive Nonreactive Blood 12/09/2024 7:47 AM KNUCKLER 12/09/2024 8:05 AM KNUCKLER Epi Guzman MD LAB MICROBIOLOGY - GENERAL ORDERABLES Final Result Performing Organization Address City/[facility]/ZIP Co de Phone Number [facility] Department [place] [address] * (ABNORMAL) CBC without differential (12/09/2024 7:47 AM KNUCKLER) [facility] WBC 8.7 3.8 - 9.9 K/cumm Hgb 9.1(L) 11.9 - 15.5 g/dL [facility] Hct 28.8(L) 35.6 - 45.5 % [facility] Plt 224 150 - 400 K/cumm [facility] MPV 11.9 9.1 - 12.3 fL [facility] RBC 3.45(L) 3.90 - 5.20 M/cumm [facility] MCV 83.5 81.3 - 96.4 fL [facility] MCH 26.4(L) 27.1 - 33.3 pg [facility] MCHC 31.6(L) 32.3 - 35.7 g/dL [facility] RDW CV 14.8 11.1 - 14.9 % [facility] RDW SD 44.6 35.7 - 48.1 fL [facility] NRBC abs 0.00 0.00 - 0.01 K/cumm [facility] Blood 12/09/2024 7:47 AM KNUCKLER 12/09/2024 8:05 AM KNUCKLER Epi Guzman MD LAB BLOOD ORDERABLES Final Result [facility] [place] [address] * Type and screen (12/09/2024 7:47 AM KNUCKLER) Quintin, indirect Negative ABO Rh O Positive [facility] Blood 12/09/2024 7:47 AM KNUCKLER 12/09/2024 8:08 AM KNUCKLER Narrative PRABHJOT ALLISON - 12/09/2024 8:56 AM KNUCKLER Has the patient had Daratumumab or Isatuximab in the past 6 months?->Unknown us Epi Guzman MD LAB BLOOD BANK TEST ORDERAB LES Final Result [facility] One [facility] Department [place] [address] * US Ob Limited (11/26/2024 1:34 PM KNUCKLER) Fetus# Fetus1 VIEWPOINT Estimated Weight 2,673 g&grams VIEWPOINT Placenta Details posterior, Previa-no, no placental masses VIEWPOINT Presentation Vertex VIEWPOINT Anatomical Region Laterality Modality Abdomen N/A Ultrasound 11/26/2024 2:01 PM KNUCKLER Impressions 11/26/2024 3:50 PM KNUCKLER Yo IUP at 37w 1d who presents for growth assessment in the setting of previously noted FGR. ?? 1. Vertex presentation. ?? 2. The interval growth has been appropriate. The EFW plots at the 17% and AC 20%. growth restriction pattern is resolved. 3. The amniotic fluid volume is normal. These results have been communicated to the patient's OBGYN provider. Narrative Procedure Note Aileen Seymour MD - 11/26/2024 IMPRESSION: Yo IUP at 37w 1d who presents for growth assessment in thesetting of previously noted FGR. 1. Vertex presentation. 2. The interval growth has been appropriate. The EFW plots at the17% and AC 20%. growth restriction pattern is resolved. 3. The amniotic fluid volume is normal. These results have been communicated to the patient's OBGYN provider. us Irma Siu MD IMG OB US PROCEDURE S Final Result * US Ob Limited (11/19/2024 12:25 PM KNUCKLER) Fetus# Fetus1 VIEWPOINT Placenta Details posterior, Previa-no, no placental masses VIEWPOINT Presentation Vertex VIEWPOINT Anatomical Region Laterality Modality Abdomen N/A Ultrasound 11/19/2024 12:5 2 PM KNUCKLER Impressions 11/19/2024 1:23 PM KNUCKLER 36w 1d IUP with known FGR for evaluation of wellbeing - UA Dopplers measure within normal limits, PI 74%, with forward flow in all waveforms. BPP 8/8 and reassuring. Vertex presentation. Normal ERNESTINE, 13.6 cm. Narrative Procedure Note Krista Aguilar MD - 11/19/2024 IMPRESSION: 36w 1d IUP with known FGR for evaluation of wellbeing - UA Dopplersmeasure within normal limits, PI 74%, with forward flow in all waveforms.BPP 8/8 and reassuring. Vertex presentation. Normal ERNESTINE, 13.6 cm. Irma Siu MD IMG OB US PROCEDURE S Final Result * ROM Plus (IGFBP-1/AFP) (11/14/2024 11:42 AM KNUCKLER) IFG Binding Protein-1 / AFP Negative Swab 11/14/2024 11:4 2 AM KNUCKLER 11/14/2024 12:00 PM KNUCKLER us Mely Rowland NP LAB BODY FLUIDS AN D STOOLS ORDERABLES Final Result PRABHJOT [facility] One [facility] [place] [address] * US Ob Limited (11/05/2024 10:21 AM KNUCKLER) Fetus# Fetus1 VIEWPOINT Estimated Weight 2,021 g&grams VIEWPOINT Placenta Details posterior, Previa-no, no placental masses VIEWPOINT Presentation Vertex VIEWPOINT Anatomical Region Laterality Modality Abdomen N/A Ultrasound 11/05/2024 10:3 3 AM KNUCKLER Impressions 11/05/2024 11:20 AM KNUCKLER Yo IUP at 34w 1d who presents for growth assessment. ??1. Vertex presentation. ??2. The interval growth has been appropriate and remains consistent with growth restriction by AC 8%. The EFW plots at the 11%. 3. The biophysical profile is 8/8 with normal breathing motion, body motion, tone and amniotic fluid volume. 4. The umbilical artery Dopplers are normal, PI 76%. Narrative Procedure Note Aileen Seymour MD - 11/05/2024 IMPRESSION: Yo IUP at 34w 1d who presents for growth assessment. 1.Vertex presentation. 2. The interval growth has beenappropriate and remains consistent with growth restriction by AC 8%.The EFW plots at the 11%. 3. The biophysical profile is 8/8 with normalbreathing motion, body motion, tone and amniotic fluid volume. 4. Theumbilical artery Dopplers are normal, PI 76%. us Adelina Herrera BRICK WHEELER IMG OB US PROCEDURES Final Result * US Ob Limited (10/22/2024 12:32 PM KNUCKLER) Fetus# Fetus1 VIEWPOINT Placenta Details posterior, Previa-no, no placental masses VIEWPOINT Presentation Vertex VIEWPOINT Anatomical Region Laterality Modality Abdomen N/A Ultrasound 10/22/2024 12:3 3 PM KNUCKLER Impressions 10/22/2024 1:19 PM KNUCKLER 32w 1d IUP with known FGR for evaluation of wellbeing - UA Dopplers measure within normal limits, PI 62%, with forward flow in all waveforms. BPP 8/8 and reassuring. Vertex presentation. Normal ERNESTINE, 16 cm. Narrative Procedure Note Akua Deluca MD - 10/22/2024 IMPRESSION: 32w 1d IUP with known FGR for evaluation of wellbeing - UA Dopplersmeasure within normal limits, PI 62%, with forward flow in all waveforms.BPP 8/8 and reassuring. Vertex presentation. Normal ERNESTINE, 16 cm. Adelina Herrera BRICK WHEELER IMG OB US PROCEDURES Final Result * Protein / creatinine ratio, urine, random (10/08/2024 6:23 PM KNUCKLER) Protein, ur, quant 16.4 mg/dL Comment: Interpretive Data No reference range established. Current interpretive data was last revised 2019. Creatinine Ur 133.5 mg/dL [facility] Comment: Interpretive Data No reference range established. Current interpretive data was last revised 2019. Protein/creatinin e ratio 122.8 0.0 - 180.0 mg/g CR [facility] Urine 10/08/2024 6:23 PM KNUCKLER 10/08/2024 7:17 PM KNUCKLER Result [facility] Adelina Herrera NP LAB URINE ORDERABLES Final Result [facility] One [facility] Department [place] [address] * (ABNORMAL) Urine culture Urine, clean voided (10/08/2024 4:03 PM KNUCKLER) Report Final Report: Less than 100,000 colonies/mL (clinically insignificant growth based on current clinical standards) Includes the following: Less than 100,000 colonies/mL Streptococcus agalactiae (Group B Streptococci) * ??* ??* ??* ??* ??* ??* ??* ??* ??* ??* ??* ??* ??* ??* ??* ??* ??* ??* ??* Resistance to penicillin in Group B Streptococcus has not been reported. ??Group B Streptococci are universally susceptible to beta-lactam antibiotics and vancomycin. Routine susceptibility testing is not performed. In penicillin allergic patients, please contact the laboratory at [phone] to request susceptibility testing * ??* ??* ??* ??* ??* ??* ??* ??* ??* ??* ??* ??* ??* ??* ??* ??* ??* ??* ??* This laboratory routinely screens urine cultures for any amount of Group B Streptococcus in reproductive age women. ??Recovery of this isolate may be significant in women, however, the recovery of this organism in small quantities in non- women represents contamination with periurethral danya. (.) Organism (CLINICALLY INSIGNIFICANT GROWTH [facility] Organism STREPTOCOCCUS AGALACTIAE (GROUP B STREPTOCOCCI) [facility] Urine, clean voided 10/08/2024 4:03 PM KNUCKLER 10/08/2024 7:46 PM KNUCKLER Narrative [facility] - 10/10/2024 4:17 PM KNUCKLER Testing performed by [facility] ([phone]) Adelina Herrera BRICK WHEELER LAB MICROBIOLOGY - GENERAL ORDERABLES Final Result [facility] One [facility] Department [place] [address] * eGFR (10/08/2024 3:07 PM KNUCKLER) eGFR >90 >=60 mL/min/1. 73 m2 Comment: Interpretive Data Reference Interval Normal ?>/= 90 mL/min/1.73m2 Mildly decreased* ? 60 - 89 mL/min/1.73m2 Mildly to moderately decreased ?45 - 59 mL/min/1.73m2 Moderately to severely decreased ??30 - 44 mL/min/1.73m2 Severely decreased ?15 - 29 mL/min/1.73m2 Kidney Failure ?< 15 ??mL/min/1.73m2 *Relative to young adult level Estimated glomerular filtration rate is determined by the 2020 CKD-EPI equation recommended by the National Kidney Foundation (A Unifying Approach to GFR Estimation: Recommendations of the NKF-ASK Task Force on Reassessing the Inclusion of Race in Diagnosing Kidney Disease, JASN 2020). The CKD-EPI equation should not be used for patients with unstable renal function and has not been validated in children and those over 70. Current interpretive data was last reviewed 2021. Blood 10/08/2024 3:07 PM KNUCKLER 10/08/2024 3:44 PM KNUCKLER Adelina Herrera NP LAB BLOOD ORDERABLES Final Result Performing Organization Address [facility]/[place] Co de Phone Number PRABJHOT [facility] Department of [employer] [place] [address] * GTT 50gm 1hr gestational screen (10/08/2024 3:07 PM KNUCKLER) GTT 50g gest screen 96 <=140 mg/dL Comment: Interpretive Data Used for suspected gestational diabetes. The screening test uses 50 grams of glucose with sample obtained 1 hr later. Normal range: < 140 mg/dL. A glucose value of >140 mg/dL generally indicates the need for a full diagnostic tolerance test. Reference Interval Info: Diabetes Care 2005, Vol 28. Supplement 1,S37-S42. Report of the Expert Committee on the Diagnosis and Classification of Diabetes Mellitus. Diabetes Care 2020; 43(Supplement 1):S14-31. Current interpretive data was last revised on 2021. Blood 10/08/2024 3:07 PM KNUCKLER 10/08/2024 3:35 PM KNUCKLER Adelina Herrera NP LAB BLOOD ORDERABLES Final Result Performing Organization Address [facility] Co de Phone Number PRABHJOT [facility] Department [place] [address] * HIV 1/2 Antibody plus p24 Antigen Blood (10/08/2024 3:07 PM KNUCKLER) HIV 1/2 ab + p24 ag Nonreactive Nonreactive Comment:Nonreactive for HIV- 1 antigen and HIV-1/HIV-2 antibodies. No laboratory evidence of HIV infection. If acute HIV infection is suspected, consider testing for HIV-1 RNA. Current interpretive data was last revised on 22. Blood 10/08/2024 3:07 PM KNUCKLER 10/08/2024 3:35 PM KNUCKLER Adelina Herrera NP LAB MICROBIOLOGY - GENERAL ORDERABLES Final Result [facility] Department [employer] [place] [place] [address] * (ABNORMAL) Hemoglobin analysis by electrophoresis (10/08/2024 3:07 PM KNUCKLER) [facility] RBC 3.54(L) 3.90 - 5.20 M/cumm Hgb 9.9(L) 11.9 - 15.5 g/dL [facility] MCV 86.4 81.3 - 96.4 fL [facility] Rdw 13.7 11.1 - 14.9 % [facility] Hgb electrophores is, interp Normal Hemoglobin Pattern - For Age [facility] Hgb A 97.7 96.0 - 98.5 % [facility] Hgb A2 2.3 1.5 - 3.2 % [facility] Hgb F <0.4 0.0 - 0.9 % [facility] Blood 10/08/2024 3:07 PM KNUCKLER 10/08/2024 3:35 PM KNUCKLER Adelina Herrera NP LAB BLOOD ORDERABLES Final Result Performing Organization Address City/[facility]/ZIP Co de Phone Number [facility] [employer] [place] [place] [address] * Hepatitis C antibody Blood (10/08/2024 3:07 PM KNUCKLER) [facility] Hep C Ab Nonreactive Nonreactive Comment:Antibodies to HCV no t detected. Does NOT exclude the possibility of recent exposure to HCV. Current interpretive data was last revised on 22 Blood 10/08/2024 3:07 PM KNUCKLER 10/08/2024 3:35 PM KNUCKLER Adelina Herrera NP LAB MICROBIOLOGY - GENERAL ORDERABLES Final Result Performing Organization Address City/[facility]/[place] Co de Phone Number [facility] [employer] [place] [place] [address] * Rubella IgG antibody Blood (10/08/2024 3:07 PM KNUCKLER) Rubella IgG Reactive Comment:Reactive: Results robles ggest response to immunization or prior exposure to the virus. Blood 10/08/2024 3:07 PM KNUCKLER 10/08/2024 3:35 PM KNUCKLER Adelina Herrera NP LAB MICROBIOLOGY - GENERAL ORDERABLES Final Result Performing Organization Address [facility]/[place] [address] * RPR Blood (10/08/2024 3:07 PM KNUCKLER) RPR Nonreactive Nonreactive Blood 10/08/2024 3:07 PM KNUCKLER 10/08/2024 3:35 PM KNUCKLER Adelina Herrera NP LAB MICROBIOLOGY - GENERAL ORDERABLES Final Result Performing Organization Address City/[facility] Co de Phone Number [facility] [employer] [place] [place] [address] * Hepatitis B Surface Antigen Blood (10/08/2024 3:07 PM KNUCKLER) HepBsAg Nonreactive Nonreactive Blood 10/08/2024 3:07 PM KNUCKLER 10/08/2024 3:35 PM KNUCKLER Adelina Herrera NP LAB MICROBIOLOGY - GENERAL ORDERABLES Final Result [facility] [place] [address] * (ABNORMAL) CBC without differential (10/08/2024 3:07 PM KNUCKLER) WBC 9.8 3.8 - 9.9 K/cumm Hgb 9.8(L) 11.9 - 15.5 g/dL [facility] Hct 30.1(L) 35.6 - 45.5 % [facility] Plt 292 150 - 400 K/cumm [facility] MPV 10.7 9.1 - 12.3 fL [facility] RBC 3.49(L) 3.90 - 5.20 M/cumm [facility] MCV 86.2 81.3 - 96.4 fL [facility] MCH 28.1 27.1 - 33.3 pg [facility] MCHC 32.6 32.3 - 35.7 g/dL [facility] RDW CV 13.8 11.1 - 14.9 % [facility] RDW SD 42.8 35.7 - 48.1 fL [facility] NRBC abs 0.00 0.00 - 0.01 K/cumm [facility] Blood 10/08/2024 3:07 PM KNUCKLER 10/08/2024 3:35 PM KNUCKLER Adelina Herrera NP LAB BLOOD ORDERABLES Final Result [facility] Department [place] [address] * Type and screen (10/08/2024 3:07 PM KNUCKLER) Pathologist [facility] Quintin, indirect Negative ABO Rh O Positive [facility] Blood 10/08/2024 3:07 PM KNUCKLER 10/08/2024 3:55 PM KNUCKLER Narrative [facility] - 10/08/2024 5:07 PM KNUCKLER Has the patient had Daratumumab or Isatuximab in the past 6 months?->Unknown Result [facility] Adelina Herrera NP LAB BLOOD BANK TEST ORDERAB LES Final Result Performing Organization Address [facility]/[place] Co de Phone Number [facility] Department [place] [address] * (ABNORMAL) Varicella Zoster IgG antibody Blood (10/08/2024 3:07 PM KNUCKLER) [facility] VZV IgG Nonreacti ve(A) Reactive Comment:Non-reactive: No det ectable antibody to Varicella-zoster virus.??Such individuals are presumed to be uninfected and to be susceptible to primary infection. Blood 10/08/2024 3:07 PM KNUCKLER 10/08/2024 3:35 PM KNUCKLER Adelina Herrera LAB MICROBIOLOGY - GENERAL ORDERABLES Final Result Performing Organization Address [facility] de Phone Number [facility] [employer] [place] [address] * Hemoglobin A1c (10/08/2024 3:07 PM KNUCKLER) [facility] Hgb A1C 5.2 4.0 - 5.6 % Estimated Average Glucose 103 mg/dL [facility] Comment: The ADA recommends reporting an estimated Average Glucose (eAG) with all Hemoglobin A1c results using the equation derived from a study of 507 normal and diabetic adults. ??Minority populations were underrepresented and children were not included. ?? (Diabetes Care 2020; 43(S1): S66-S76). ??The eAG is not equivalent to a fasting glucose. Blood 10/08/2024 3:07 PM KNUCKLER 10/08/2024 3:35 PM KNUCKLER Adelina Herrera LAB BLOOD ORDERABLES Final Result Performing Organization Address [facility] de Phone Number [facility] Department [employer] [place] [address] * Ferritin (10/08/2024 3:07 PM KNUCKLER) Ferritin 34 13 - 150 ng/mL Blood 10/08/2024 3:07 PM KNUCKLER 10/08/2024 3:35 PM KNUCKLER Adelina Herrera NP LAB BLOOD ORDERABLES Final Result [facility] One [facility] [place] [address] * Comprehensive metabolic panel (10/08/2024 3:07 PM KNUCKLER) Pathologist [facility] Sodium 142 135 - 145 mmol/L Potassium, pl 3.6 3.3 - 4.9 mmol/L [facility] Chloride 108 97 - 110 mmol/L [facility] CO2 23 22 - 32 mmol/L [facility] Anion gap 11 2 - 15 mmol/L [facility] BUN 8 6 - 25 mg/dL [facility] Creatinine 0.61 0.60 - 1.10 mg/dL [facility] Glucose 107 70 - 199 mg/dL [facility] Comment: Interpretive Data Fasting glucose >/= 126 mg/dl is diagnostic for diabetes. ?? Fasting is defined as no caloric intake for at least 8 hours. Fasting glucose between 100 mg/dl to 125 mg/dl is diagnostic of prediabetes. In a patient with classic symptoms of hyperglycemia or hyperglycemic crisis, a random glucose >/= 200 mg/dl is diagnostic for diabetes. In the absence of unequivocal hyperglycemia, results should be confirmed by repeat testing. The classification and Diagnosis of Diabetes Diabetes Care 202; 46: S19-S40. Current interpretive data was last revised 2022. Calcium 9.2 8.5 - 10.3 mg/dL [facility] Bilirubin, total 0.2 0.1 - 1.2 mg/dL [facility] Protein, pl 6.7 6.5 - 8.5 g/dL [facility] Albumin 3.6 3.5 - 5.0 g/dL [facility] Alk phos 114 40 - 130 Units/L [facility] ALT 13 7 - 45 Units/L [facility] AST 19 10 - 45 Units/L [facility] Blood 10/08/2024 3:07 PM KNUCKLER 10/08/2024 3:35 PM KNUCKLER us Adelina Herrera NP LAB BLOOD ORDERABLES Final Result [facility] One [facility] [place] [address] * US OB 14 Weeks Or Over (10/06/2024 8:38 AM KNUCKLER) Fetus# Fetus1 VIEWPOINT Estimated Weight 1,290 g&grams VIEWPOINT Placenta Details posterior, Previa-no, no placental masses VIEWPOINT Presentation Vertex VIEWPOINT Anatomical Region Laterality Modality Abdomen N/A Ultrasound 10/06/2024 9:04 AM KNUCKLER Impressions 10/06/2024 11:34 AM KNUCKLER biometry is small for gestation with the AC less than 10'th 'centile. ??No malformations are identified. ??UA Doppler PI is 1.1 (76'th 'centile.) ??, The biophysical profile is 8/8 with normal breathing motion, body motion, tone and amniotic fluid volume. IUP at 29 weeks + 6 days growth restriction Reassuring BPP & normal UA Doppler studies Narrative Procedure Note Ly Medrano MD - 10/06/2024 IMPRESSION: biometry is small for gestation with the AC less than 10'th'centile. No malformations are identified. UA Doppler PI is 1.1(76'th 'centile.) , The biophysical profile is 8/8 with normal breathingmotion, body motion, tone and amniotic fluid volume. IUP at 29 weeks + 6days growth restriction Reassuring BPP & normal UA Doppler studies us Adelina Herrera BRICK WHEELER IMG OB US PROCEDURES Final Result * N. gonorrhoeae/C. trachomatis Amplification Urine (09/27/2024 1:26 PM CDT) C. trachomatis Not Detected Not Detected [facility] N. gonorrhoeae Not Detected Not Detected PRABHJOT [facility] Comment: Interpretive Data This assay detects Chlamydia trachomatis and Neisseria gonorrhoeae by nucleic acid amplification testing (NAAT). This assay has been cleared by the [place] Food and Drug administration. The performance characteristics of this test have been verified by the [facility] laboratory. The performance characteristics of this test have not been evaluated in individuals less than 14 years of age. Current Interpretive Data last revised 2023. Urine (None) 09/27/2024 1:26 PM CDT 09/27/2024 1:39 PM CDT Jada Stephen [facility]ER LAB M ICROBIOLOGY - GENERAL ORDERABLES Final Result [facility] One [facility] [place] [address] [facility] from Last 3 Months or Most Recently Relevant to Health Maintenance Insurance [facility] MANUEL FOLEY [address] [place] [address] [employer] [place] Advance Directives For more information, please contact: [phone] * Full Code (Latest Code Status on File) Date Activated Date Inactivated Comments 12/10/2024 5:23 AM 12/12/2024 5:06 PM * Full Code Date Activated Date Inactivated Comments 12/09/2024 6:42 AM 12/10/2024 5:23 AM Full CPR in c ase of cardiopulmonary arrest * Full Code Date Activated Date Inactivated Comments 08/04/2022 10:37 PM 08/07/2022 7:02 PM Full CPR in c ase of cardiopulmonary arrest Care Teams Senior Editor Relationship Specialty Start Date End Date No, Physician PCP - General 10/31/20
--- OUTSIDE RECORDS SUMMARY | 2025-01-03 16:15 | XMS_ITS | Patient Health Summary ---
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 Placenta, vaginal delivery: --Mature (37 and 1/7 gestational week age) term placenta with: A) Trivascular umbilical cord negative for acute funisitis B) Placental membranes negative for meconium staining and acute chorioamnionitis C) Placental parenchyma with: 1. Negative for villitis, vasculopathy and infarcts 2. :placental ratio at the 75th% and placental weight at the 25th% of the GWA 06/15/2021 2:33 PM [facility] Clinical History PreE with SF, hypertension and anemia 06/15/2021 2:33 PM [facility] Gross Description The requisition and specimen are identified with patient's name and date of . Received in formalin, specimen A, placenta is a placental disc with attached umbilical cord. Umbilical cord is inserted eccentrically, 3.4 cm from margin, measuring 23.5 cm long and 1.2-1.4 cm in diameter. The cord is trivascular and appropriately coiled. The membranes are inserted marginally and are cody, opaque. The placental disc is 384 g measuring 14.5 x 14.5 by up to 2.8 cm. The surface is blue-cody with normal vasculature. The maternal surface is disrupted but appears complete with mild adherent clot around the periphery but no indentation. Sectioning shows red-cody spongy cut surfaces. Blanchard Grinder Operator sections submitted as follows: A1-umbilical cord and membrane roll, A2-placental disc central, A3-placental disc peripheral. LJ 06/15/2021 2:33 PM [facility] Microscopic Description Review confirms the final diagnosis. 06/15/2021 2:33 PM [facility] Disclaimer All histochemical and/or immunohistochemical results are interpreted with controls that demonstrate appropriate staining reactions before reporting results. Note on use of immunocytochemistry reagents: This test was developed and its performance characteristic determined by [facility], Department of Laboratory Medicine. It has not been cleared or approved by the U.S. Food and Drug Administration (FDA). The FDA has determined that such clearance or approval is not necessary. The test is used for clinical purpose. It should not be regarded as investigational or for research. This laboratory is certified to perform high complexity testing. The performance characteristics of the IHC/HEBERT assays have been validated on formalin-fixed paraffin embedded tissues only. The assays have not been validated on decalcified tissues. Results should be interpreted with caution. 06/15/2021 2:33 PM CDT [facility] Embedded Images 06/15/2021 2:33 PM CDT [facility] Pathology/Cytolo gy ENTIRE PLACENTA / Unknown Collection / Unknown 06/12/2021 6:39 AM CDT 06/12/2021 7:56 AM CDT Marizol Lopez MD LAB - PATHOLOGY/CY TOLOGY ORDERABLES [facility] [address] [place] [address] * (ABNORMAL) BLOOD GASES CORD ARTERIAL (06/12/2021 5:32 AM CDT) pH Cord Arterial 7.30 7.20 - 7.34 pH 06/12/2021 5:45 AM CDT [facility] RESP THERAPY pCO2 Cord Arterial 44(L) 45 - 55 mm hg 06/12/2021 5:45 AM CDT [facility] RESP THERAPY pO2 Cord Arterial 29(H) 12 - 25 mm hg 06/12/2021 5:45 AM CDT [facility]ERAP[facility] Comment:H HCO3 Cord Arterial 21.1(L) 22.0 - 24.0 mmol/L 06/12/2021 5:45 AM CDT [facility] RESP THERAPY Comment:L BE Cord Arterial -5.3 mmol/L 06/12/2021 5:45 AM CDT [facility] RESP THERAPY O2 Saturation Cord Arterial 73 % 06/12/2021 5:45 AM CDT [facility] RESP THERAPY Abdiaziz's Test N/A 06/12/2021 5:45 AM CDT [facility] RESP THERAPY Sample Site Other 06/12/2021 5:45 AM CDT [facility] RESP THERAPY Sample Type Cord blood Arterial 06/12/2021 5:45 AM CDT [facility] RESP THERAPY Integrity Manager ID [id number] 06/12/2021 5:45 AM CDT [facility] RESP THERAPY Blood, arterial CORD BLOOD SPECIMEN / Unknown 06/12/2021 5:32 AM CDT 06/12/2021 5:32 AM CDT Marizol Lopez MD LAB - BLOOD GASES ORDERABLES Performing Organization Address City/[facility]/ZIP Co de Phone Number [facility] RESP THERAPY [address] [place] [address] * BLOOD GASES CORD STEVE (06/12/2021 5:32 AM CDT) pH Cord Venous 7.39 7.28 - 7.40 pH 06/12/2021 5:42 AM CDT [facility] Comment:H pCO2 Cord Venous 39 35 - 45 mm hg 06/12/2021 5:42 AM CDT [facility] RESP [facility]ERAP[facility] pO2 Cord Venous 28 22 - 33 mm hg 06/12/2021 5:42 AM CDT [facility] RESP [facility]ERAP[facility] HCO3 Cord Venous 23 22 - 24 mmol/L 06/12/2021 5:42 AM CDT [facility] Comment:H BE Cord Venous -2.0 mmol/L 06/12/2021 5:42 AM CDT [facility] RESP [facility]ERAP[facility] O2 Saturation Cord Venous 73 % 06/12/2021 5:42 AM CDT [facility] RESP THERAPY Abdiaziz's Test N/A 06/12/2021 5:42 AM CDT [facility] Sample Site Other 06/12/2021 5:42 AM CDT [facility] Sample Type Cord Blood Venous 06/12/2021 5:42 AM CDT [facility] RESP THERAPY Integrity Manager ID [id number] 06/12/2021 5:42 AM CDT [facility] Blood CORD BLOOD SPECIMEN / Unknown 06/12/2021 5:32 AM CDT 06/12/2021 5:32 AM CDT Marizol Lopez MD LAB - BLOOD GASES ORDERABLES Performing Organization Address [facility]/ZIP Co de Phone Number [facility] [address] [place] [address] * (ABNORMAL) URINE MICROSCOPIC ONLY REFLEX TO CULTURE (06/11/2021 10:53 PM CDT) Only the most recent of2 resultswithin the time period is included. Reflex Status Culture to follow 06/11/2021 11:18 PM CDT [facility] RBC UA 21-50(A) None Seen, 0-2, 3-5 # /hpf 06/11/2021 11:18 PM CDT [facility] WBC UA 6-10(A) None Seen, 0-5 # /hpf 06/11/2021 11:18 PM CDT [facility] Bacteria UA Trace(A) None Seen 06/11/2021 11:18 PM CDT [facility] Squamous Epithelial Cells 0-2 None Seen, 0-2, 3-5 /hpf 06/11/2021 11:18 PM CDT [facility] Urine URINE SPECIMEN OBTAINED BY SINGLE CATHETERIZATION OF URINARY BLADDER / Unknown Collection / Unknown 06/11/2021 10:53 PM CDT 06/11/2021 11:01 PM CDT [facility] - 06/11/2021 11:18 PM CDT Joey Delaney MD LAB - URINALYSIS ORD ERABLES [facility] [address] [place] [address] * (ABNORMAL) URINALYSIS REFLEX MICROSCOPIC REFLEX CULTURE (06/11/2021 10:53 PM CDT) Only the most recent of2 resultswithin the time period is included. Color UA Straw Straw, Yellow 06/11/2021 11:11 PM CDT [facility] Clarity UA Clear Clear 06/11/2021 11:11 PM CDT [facility] Glucose UA Negative Negative 06/11/2021 11:11 PM CDT [facility] Bilirubin UA Negative Negative 06/11/2021 11:11 PM CDT [facility] Ketone UA Negative Negative 06/11/2021 11:11 PM CDT [facility] Specific Alvarado UA 1.006 1.005 - 1.030 06/11/2021 11:11 PM CDT [facility] Blood UA 3+(A) Negative 06/11/2021 11:11 PM CDT [facility] pH UA 8.0 5.0 - 8.0 pH 06/11/2021 11:11 PM CDT [facility] Protein UA Negative Negative 06/11/2021 11:11 PM CDT [facility] Urobilinogen UA Negative Negative mg/dL 06/11/2021 11:11 PM CDT [facility] Nitrite UA Negative Negative 06/11/2021 11:11 PM CDT [facility] Leukocyte UA Trace(A) Negative 06/11/2021 11:11 PM CDT [facility] Urine Microscopy Urine microscopy to follow 06/11/2021 11:11 PM CDT [facility] Reflex Status Culture to follow 06/11/2021 11:11 PM CDT [facility] Urine URINE SPECIMEN OBTAINED BY SINGLE CATHETERIZATION OF URINARY BLADDER / Unknown Collection / Unknown 06/11/2021 10:53 PM CDT 06/11/2021 11:01 PM CDT Narrative [facility] - 06/11/2021 11:11 PM CDT Joey Delaney MD LAB - URINALYSIS ORD ERABLES Performing Organization Address City/[facility] Co de Phone Number [facility] [address] [place] [address] * PROTEIN CREATININE RATIO URINE RANDOM PNL (06/11/2021 10:53 PM CDT) Only the most recent of2 resultswithin the time period is included. Protein Urine 9.7 <11.9 mg/dL 06/11/2021 11:19 PM CDT [facility] Creatinine Urine 27.95 mg/dL 06/11/2021 11:19 PM CDT [facility] Protein/Creatin ine Ratio Urine 0.35 06/11/2021 11:19 PM CDT [facility] Urine URINE SPECIMEN OBTAINED BY CLEAN CATCH PROCEDURE / Unknown Collection / Unknown 06/11/2021 10:53 PM CDT 06/11/2021 11:01 PM CDT Joey Delaney MD LAB - URINE CHEMISTR Y ORDERABLES Performing Organization Address [facility] Co de Phone Number [facility] [address] [place] [address] * (ABNORMAL) COMPREHENSIVE METABOLIC PANEL (06/11/2021 10:51 PM CDT) Only the most recent of2 resultswithin the time period is included. Glucose 80 70 - 105 mg/dL 06/11/2021 11:20 PM CDT [facility] Sodium 138 136 - 145 mmol/L 06/11/2021 11:20 PM CDT [facility] Potassium 3.4(L) 3.5 - 5.1 mmol/L 06/11/2021 11:20 PM CDT [facility] Chloride 108(H) 98 - 107 mmol/L 06/11/2021 11:20 PM CDT [facility] CO2 19(L) 23 - 31 mmol/L 06/11/2021 11:20 PM CDT [facility] Calcium 9.1 8.4 - 10.4 mg/dL 06/11/2021 11:20 PM CDT [facility] Anion Gap 11 8 - 18 mmol/L 06/11/2021 11:20 PM CDT [facility] BUN 7 7 - 18.7 mg/dL 06/11/2021 11:20 PM CDT [facility] Creatinine 0.72 0.57 - 1.11 mg/dL 06/11/2021 11:20 PM CDT [facility] Alkaline Phosphatase 208(H) 40 - 150 U/L 06/11/2021 11:20 PM CDT [facility] ALT 8 0 - 61 U/L 06/11/2021 11:20 PM CDT [facility] AST 17 5 - 34 U/L 06/11/2021 11:20 PM CDT [facility] Protein Total 6.4 6.4 - 8.3 gm/dL 06/11/2021 11:20 PM CDT [facility] Albumin 3.1(L) 3.4 - 5.0 gm/dL 06/11/2021 11:20 PM CDT [facility] Bilirubin Total 0.6 0.2 - 1.2 mg/dL 06/11/2021 11:20 PM CDT [facility] eGFR by MDRD >60 >60 mL/min/1.7 3m2 06/11/2021 11:20 PM CDT [facility] eGFR by MDRD >60 >60 mL/min/1.7 3m2 06/11/2021 11:20 PM CDT [facility] Blood BLOOD SPECIMEN / Unknown Venipuncture / Unknown 06/11/2021 10:51 PM CDT 06/11/2021 11:01 PM CDT Joey Delaney MD LAB - CHEMISTRY TYREL PADRON [facility] [address] [place] [id number] * EPIDURAL BLOCK PERF (06/11/2021 5:16 PM CDT) Narrative Layton Moe APRN-STRAPPER OPERATOR - 06/11/2021 5:16 PM CDT Layton Moe APRN-STRAPPER OPERATOR ? 06/11/2021 ??5:17 PM Neuraxial Block Note ?? Pre-Procedure: ?? Procedure Name: ??Neuraxial Block Patient Location: ??OB Indications: ??at patient's request and labor analgesia Pre-Anesthetic Checklist: ??Patient identified, IV Checked, Risks and benefits discussed, Surgical consent verified, Monitors and equipment, Site examined, Pre-op evaluation done, Time-out performed, Informed consent obtained, Questions answered/anesthesia questions answered and Allergies reviewed Anticoagulation/ Anti-thrombosis status confirmed? ??Yes Monitors: ??BP and continuous pluse ox Patient Condition: ??awake Procedure: ?? Block Type: ??Epidural Prep: ??Betadine Sterile Field: ??mask, cap/hat, sterile established and sterile gloves Approach: ??midline Skin was localized? ??Yes Skin localized with: lidocaine (XYLOCAINE) 1 % injection, 1 mL Epidural Block: ?? Needle Type: ??Tuohy Needle gauge: ??18 G Needle length: ??90 mm Placement Site: ??L3-L4 Number of Attempts: ??1 Loss of Resistance: ??7 ?? air Catheter length at skin (cm): ??12 CSF Aspirated from catheter: ??No Blood Aspirated: ??No Test Dose: ??lidocaine 1.5% with 1-200,000 epinephrine ?? 3 ??mL Test Dose Response: ??No Epidural Infusion Medications: ? Ropivacaine: ??0.2% with Fentanyl 2mcg/mL in NS , ??at 12 mL/hr Degree of difficulty: ??none Procedure Tolerance: ??tolerated well Position post procedure: ??left uterine displacement Vital Signs: ??Vital signs moniitored and stable throughout. ??See nursing vitals flowsheet for details. Staff: ?? Anesthesia Provider: ??Layton Moe APRN-STRAPPER OPERATOR ?? - ?? performed the procedure Additional Notes: ??Patient understood indications and complications of epidural placement. Patient and family in room had no further questions about epidural placement before procedure started. Patient coached through steps of epidural placement and tolerated procedure well. Good EDISON felt and epidural placed through 18g tuohy needle without pain or parasthesia. Patient indicated test dose negative of circumoral numbness, tinnitus or increased HR/BP at time noted. ?? Sven Morales DO GENERAL ANESTHESIA O RDERABLES * GLUCOSE - POINT OF CARE (06/11/2021 9:00 AM CDT) Pathologist [facility] Glucose WB/POC 88 70 - 106 mg/dL 06/11/2021 9:16 AM CDT [facility] Specimen Type Venous 06/11/2021 9:16 AM CDT [facility] Blood BLOOD SPECIMEN / Unknown 06/11/2021 9:00 AM CDT 06/11/2021 9:16 AM CDT Joey Delaney MD LAB - POINT OF CARE ORDERABLES Performing Organization Address City/State/[facility] Co de Phone Number [facility] [address] [place] [address] * (ABNORMAL) CBC W/O DIFFERENTIAL (06/10/2021 8:38 AM CDT) Only the most recent of2 resultswithin the time period is included. Pathologist [facility] WBC 7.8 4.4 - 10.7 x10E9/L 06/10/2021 9:01 AM CDT [facility] RBC 3.48(L) 3.80 - 5.20 x10E12/L 06/10/2021 9:01 AM CDT [facility] Hemoglobin 9.5(L) 12.0 - 15.6 gm/dL 06/10/2021 9:01 AM CDT [facility] Hematocrit 30.2(L) 35.9 - 45.5 % 06/10/2021 9:01 AM CDT [facility] MCV 86.8 80.7 - 98.3 fl 06/10/2021 9:01 AM CDT [facility] MCH 27.3 26.7 - 34.0 pg 06/10/2021 9:01 AM CDT [facility] MCHC 31.5 30.8 - 35.9 gm/dL 06/10/2021 9:01 AM CDT [facility] Platelet Count 277 153 - 416 x10E9/L 06/10/2021 9:01 AM [facility] RDW-CV 15.5(H) 12.1 - 14.9 % 06/10/2021 9:01 AM [facility] MPV 10.9 9.4 - 12.9 fl 06/10/2021 9:01 AM [facility] Blood BLOOD SPECIMEN / Unknown Lab Venipuncture / Unknown 06/10/2021 8:38 AM CDT 06/10/2021 8:46 AM CDT Joey Delaney MD LAB - HEMATOLOGY ORD ERABLES [facility] [address] [place] [address] * (ABNORMAL) COAGULATION PANEL W D-DIMER (06/09/2021 10:14 AM CDT) Only the most recent of2 resultswithin the time period is included. PT 11.9(L) 12.1 - 14.8 sec 06/09/2021 11:29 AM [facility] INR 0.9 0.9 - 1.1 06/09/2021 11:29 AM [facility] PTT 28.4 23.0 - 38.4 sec 06/09/2021 11:29 AM [facility] Fibrinogen 456(H) 200 - 400 mg/dL 06/09/2021 11:29 AM [facility] D-Dimer 1.38(H) 0.27 - 0.50 ug/mL FEU 06/09/2021 11:29 AM [facility] Platelet Count 292 153 - 416 x10E9/L 06/09/2021 11:29 AM T [facility] Blood BLOOD SPECIMEN / Unknown Lab Venipuncture / Unknown 06/09/2021 10:14 AM CDT 06/09/2021 11:02 AM CDT Narrative [facility] - 06/09/2021 11:29 AM CDT Conventional Warfarin Anticoagulant Therapy INR Reference Range: ??2.0-3.0 Intensive Warfarin Anticoagulant Therapy INR Reference Range: ? 2.5-3.5 Heparin Therapeutic Range for PTT: ??71.0 - 109.0 seconds. In the absence of clinical symptoms, a value less than or equal to 0.5 mcg/mL FEU significantly decreases the probability of PE/DVT (negative predictive value >95%). 1 mcg/ml FEU = 1 Fibrinogen Equivalent Unit (approximates 0.5 mcg/mL of D- dimer). ?ISTH DIAGNOSTIC SCORING SYSTEM FOR DIC ---- Score ?0 ? 1 ? 2 ? 3 ?? Platelet Count (x10^3/uL) ?> 100 ? <100 ? < 50 ?N/A PT Prolongation above ? Upper limit of normal ?0-3 ? 3-6 ? > 6 ?N/A Range (seconds) ? Fibrinogen (mg/dL) ? >100 ?< 100 ? N/A ?N/A ?? D-Dimer (mcg/mL FEU) ?< .50 ? N/A ?0.50-5.0 ?> 5 ?? Calculate Cumulative Score: > or = 5: compatible with overt DIC ? < 5: suggestive for non-overt DIC N/A = Non applicable Reference: Br. J. Haematol. ??145:24-33. Joey Delaney MD LAB - COAGULATION OR DERABLES [facility] [address] [place] [address] * CT HEAD WO CONTRAST (06/08/2021 7:02 PM CDT) Anatomical Region Laterality Modality Head Computed Tomogra phy 06/08/2021 7:10 PM CDT Impressions 06/08/2021 7:15 PM CDT 1. ??No acute intracranial hemorrhage, midline shift, or significant mass effect. 2. ??Prominence of the pituitary gland could be related to patient's . MRI of the pituitary gland without and with contrast can be performed at for further evaluation if clinically warranted. *Reading Radiologist: Ang Babin on 06/08/2021 at 7:15 PM Narrative 06/08/2021 7:[address] HEAD WO CONTRAST*[id number] Exam Date: ??06/08/2021 4:15 PM EXAMINATION: Computed tomography (CT) of the head without contrast HISTORY: Encounter for supervision of normal first , unspecified trimester TECHNIQUE: CT of the head was performed without contrast according to standard protocol. DOSE: CTDIvol: 42.40 mGy, DLP: 744.63 mGy-cm The reported CTDIvol (mGy) and DLP (mGy-cm) values are generated from scan acquisition factors based on a 32 cm body phantom or 16 cm head phantom and may underestimate or overestimate the actual patient dose based on patient size and other factors. COMPARISON: No prior study is available for comparison at the time of this dictation. FINDINGS: No acute intra- or extra-axial fluid collections are identified. The ventricles are of normal size, shape, and morphology. The basilar cisterns are patent. No mass effect or midline shift is seen. The hung-white matter differentiation is normal. Prominence of the pituitary gland likely related to patient's . MRI of the pituitary gland without and with contrast can be performed at if clinically warranted. Other than mild paranasal sinus disease, the visualized portions of the orbits, paranasal sinuses, and mastoids appear normal. No acute fracture is identified. Procedure Note Ang Babin MD - 06/08/2021 CT HEAD WO CONTRAST*[id number] Exam Date: 06/08/2021 4:15 PM EXAMINATION: Computed tomography (CT) of the head without contrast HISTORY: Encounter for supervision of normal first , unspecified trimester TECHNIQUE: CT of the head was performed without contrast according to standard protocol. DOSE: CTDIvol: 42.40 mGy, DLP: 744.63 mGy-cm The reported CTDIvol (mGy) and DLP (mGy-cm) values are generated from scan acquisition factors based on a 32 cm body phantom or 16 cm head phantom and may underestimate or overestimate the actual patient dose based on patient size and other factors. COMPARISON: No prior study is available for comparison at the time of this dictation. FINDINGS: No acute intra- or extra-axial fluid collections are identified. The ventricles are of normal size, shape, and morphology. The basilar cisterns are patent. No mass effect or midline shift is seen. The hung-white matter differentiation is normal. Prominence of the pituitary gland likely related to patient's . MRI of the pituitary gland without and with contrast can be performed at if clinically warranted. Other than mild paranasal sinus disease, the visualized portions of the orbits, paranasal sinuses, and mastoids appear normal. No acute fracture is identified. IMPRESSION 1. No acute intracranial hemorrhage, midline shift, or significant mass effect. 2. Prominence of the pituitary gland could be related to patient's . MRI of the pituitary gland without and with contrast can be performed at for further evaluation if clinically warranted. *Reading Radiologist: Ang Babin on 06/08/2021 at 7:15 PM Joey Delaney MD CT ORDERABLES * BLOOD TYPE VERIFICATION (06/08/2021 5:20 PM CDT) ABO Rh O POS 06/08/2021 5:5 3 PM CDT [facility] Blood Bank BLOOD SPECIMEN / Unknown Venipuncture / Unknown 06/08/2021 5:20 PM CDT 06/08/2021 5:30 PM CDT Joey Delaney MD LAB - BLOOD BANK ORD ERABLES [facility] [address] [phone]
--- OUTSIDE RECORDS SUMMARY | 2025-01-03 16:15 | XMS_ITS | Clinical Summary ---
Author Organization [facility] Address [address] [place] [address] Care Team Providers Care Machine Heel Builder Name Role Phone No, Physician Primary Care Provider [phone] Allergies Active Allergy Reactions Criticality Noted Date Comments Lasara Swelling,Rash Medium 10/18/2023 Medications aspirin 81 mg [...] needed for pain 90 tablet 5 01/11/20 25 Active PNV with pyhbbjk-tzlm-QA 27 mg iron- 1 mg tabletIndicatio ns:Vitamin Deficiency Prevention Take 1 tablet by mouth daily 30 tablet 5 01/12/20 Active polyethylene glycol (MIRALAX) 17 gram/dose bulk powderIndicatio ns:constipation Take 17 g by mouth daily 510 g 5 01/11/20 Active LGO76-ezxl cb,zz-kmvhz-lpg -dha 27-1-50-250 mg combo pack Take 1 [...] Hgb 9.8, PLT 292, Cr 0.61, AST/ALT 13/19, UPC 0.122 (10/08/24) Plan: - continue bASA [...] [x] Genetic Screening: s/p LR NIPT at [facility] . [x] CF/SMA carrier screening: deferred [x] [...] indicated): neg/neg/trich positive [x] RSV Vaccine (32-36w6d, Aug-Dec): given 10/22 [] Final discussion (Baby Friendly, [...] education: completed in all 3 trimesters [x] Tank Insulator Rubber: list given 12/03 [x] Car seat discussed [] PP depression counseling Trichomonal vulvovaginitis 10/06/2024 Overview (12/03/2024): Trich + in [facility] 09/27/24, Rx metronidazole sent. Patient completed course. Trich neg at [facility] on 11/14/24 RESOLVED - affected by growth [...] records 39 weeks gestation of 08/04/2022 08/05/2022 Encounters Date Type Department Care Team Description 12/24/2024 Telephone [facility] [address] [place] [address] Floor [address] [place] [phone] Vicenta Dietz 12/17/2024 Telephone [facility] [address] [place] [address] [address] [place] [phone] Marisa Flores MD 12/14/2024 Telephone [facility] [address] [place] [address] [address] [place] [phone] Vicenta Dietz 12/09/2024 11:30 PM PHONE OPERATOR Anesthesia Event [address] [phone] Earl Padilla MD Huang, Dake, MD 12/09/2024 6:35 AM PHONE OPERATOR - 12/12/2024 1:01 PM PHONE OPERATOR Hospital Encounter [address] [phone] Epi Guzman MD Russell, Sharman Maurissa, MD Tsai, Stephanie Marie, MD Encounter for induction of labor (Primary Dx) Discharge Disposition: Discharge to home or self care 12/07/[address] [phone] Martina Garcia RN Scheduled Induction 12/03/2024 2:00 PM PHONE OPERATOR Office Visit [facility] [address] [place] [address] Floor [address] [place] [phone] Martine De Santiago MD , unspecified gestational age (Primary Dx); Trichomonal vulvovaginitis; RESOLVED - affected by growth restriction; Hx of preeclampsia, prior , currently ; Encounter for supervision of normal , antepartum, unspecified ; Anemia, unspecified type 11/26/2024 2:30 PM PHONE OPERATOR Office Visit [facility] [address] [place] [address] 3rd Floor [address] [place] [address] Irma Siu MD Encounter for supervision of normal , antepartum, unspecified (Primary Dx); Hx of preeclampsia, prior , currently ; affected by growth restriction 11/26/2024 1:34 PM PHONE OPERATOR - 11/26/2024 11:59 PM PHONE OPERATOR Hospital Encounter [facility] - Ultrasound [address] [place] [phone] affected by growth restriction Discharge Disposition: Discharge to home or self care 11/19/2024 2:00 PM PHONE OPERATOR Office Visit [facility] [address] [place] [address] 3rd Floor [address] [place] [address] Feliciano Parry MD Encounter for supervision of normal , antepartum, unspecified (Primary Dx) 11/19/2024 12:25 PM PHONE OPERATOR - 11/19/2024 11:59 PM PHONE OPERATOR Hospital Encounter [facility] - Ultrasound [address] [place] [phone] affected by growth restriction Discharge Disposition: Discharge to home or self care 11/14/2024 9:54 AM PHONE OPERATOR - 11/14/2024 1:24 PM PHONE OPERATOR Hospital Encounter [address] [phone] Epi Guzman MD Discharge Disposition: Discharge to home or self care 11/05/2024 10:21 AM PHONE OPERATOR - 11/05/2024 11:59 PM PHONE OPERATOR Hospital Encounter [facility] - Ultrasound [address] [place] [phone] Poor growth affecting management of mother, antepartum, fetus 1 of multiple gestation Discharge Disposition: Discharge to home or self care 11/02/2024 2:30 PM PHONE OPERATOR Procedure visit [facility] [address] [place] [address] [address] [place] [phone] affected by growth restriction (Primary Dx) 10/22/2024 1:30 PM PHONE OPERATOR Office Visit [facility] [address] [place] [address] [address] [place] [phone] Irma Siu MD , unspecified gestational age (Primary Dx); affected by growth restriction; Hx of preeclampsia, prior , currently ; Supervision of normal first , antepartum; Trichomonal vulvovaginitis; Anemia, unspecified type 10/22/2024 1:00 PM PHONE OPERATOR Procedure visit [facility] [address] [place] [address] [address] [place] [phone] Encounter for supervision of normal , antepartum, unspecified 10/22/2024 12:30 PM PHONE OPERATOR - 10/22/2024 11:59 PM PHONE OPERATOR Hospital Encounter [facility] - Ultrasound [address] [place] [phone] Poor growth affecting management of mother, antepartum, fetus 1 of multiple gestation Discharge Disposition: Discharge to home or self care 10/14/2024 1:30 PM PHONE OPERATOR Procedure visit [facility] Clinic [address] [place] [address] [address] [place] [phone] affected by growth restriction (Primary Dx) 10/08/2024 6:23 PM PHONE OPERATOR - 10/08/2024 11:59 PM PHONE OPERATOR Hospital Encounter [address] [address] Discharge Disposition: Discharge to home or self care 10/08/2024 1:00 PM PHONE OPERATOR Initial [facility] Clinic [address] [place] [address] [address] [place] [phone] Adelina Herrera NP GA: 30w1d 10/08/2024 Orders Only [facility]cology Clinic [address] [facility] 3rd Floor [address] [place] [phone] Adelina Herrera NP 10/06/2024 8:38 AM PHONE OPERATOR - 10/06/2024 11:59 PM PHONE OPERATOR Hospital Encounter [facility] - Ultrasound [address] [facility] [place] [address] Poor growth affecting management of mother, antepartum, fetus 1 of multiple gestation (Primary Dx); state, incidental Discharge Disposition: Discharge to home or self care from Last 3 Months Immunizations Name Administration Dates Next Due HPV9 [...] drink = 0.6 oz pur e alcohol) [facility] Utilities Answer Date Recorded In the past 12 months has [employer], gas, oil, or water [employer] threatened to shut off services in your [...] often do you attend chur ch or tenriism services? Never 12/11/2024 Do you belong to any clubs o r organizations such as episcopal groups, unions, fraternal or athletic groups, or [...] things needed for daily living? No 12/11/2024 Jbphh Depression Scale Answer Date Recorded Jbphh Depression Scale Total 3 10/08/2024 The thought [...] time in the past 12 m [facility], were you homeless or living in a long-term (including now)? No 12/11/2024 Personal Safety Answer Date Recorded Have you ever been in or are you currently in a harmful physical or emotional relationship or is someone making you feel afraid or unsafe? Denies 12/09/2024 Comments No Sex and Gender Information Value Date Recorded Sex Assigned at Not on file Legal Sex Female 7:16 PM PHONE OPERATOR Gender Identity Not on file Sexual Orientation Not on file Obstetrics History Para Term AB IAB SAB Ectopic Multiple Livin g Live Births 3 3 2 1 0 3 3 Date Outcome GA Total Labor Labor/2nd/3rd Weight Sex Type Anes PTL Macey A1 A5 Name Clin 2020 3.544 kg (7 lb 13 oz) M Vag-Sp ont Epidur al Livin g 2021 Term 39w 6d 2h 50m 2h 10m/0h 34m/0h 06m 3.34 kg (7 lb 5.8 oz) M Vag-Sp ont Epidur al N Livin g 8 9 TOMAS Liu,Willie [place]e, HILLARY Complications:None Delivery Location:[facility] ([facility]) 2024 Term 39w 1d 19h 31m 18h 55m/0h 36m/ 2.8 kg (6 lb 2.8 oz) M Vagina l Combin ed Spinal /Epidu ral N Livin g 8 9 YonathanVikas josias lau, Lupillo hartmann MD Complications: Laurence oneil Hypertension Delivery Location:[facility] ([facility]) Summary Episode Dates Number of Fetuses Estimated Date of Delivery 09/27/2024 - Present (01/03/2025) 1 12/16/2024 (set by Irma Siu MD on 10/22/2024 based on Ultrasound on 05/18/2024) Dating Summary Based On EDUARDO GA Diff Last Menstrual Period on 10/07/2023 (Exact Date) 07/13/2024 +22w2d Est. Date of Conception on 03/25/2024 12/16/2024 Same Ultrasound on 05/18/2024 12/16/2024 Working GA:9w5d Vitals Pregravid Weight Height TWG (As of 01/03/2025) Pregrav id BMI 163 cm (5' 4.17 ) Date GA Fund Present FHR Mvmt BP Weight Edema Alb Glu Ket Dil/ Eff/Sta 4 28w4d Inpatient data not displayed here. See encounter summary. 4 29w6d Inpatient data not displayed here. See encounter summary. 4 32w1d Inpatient data not displayed here. See encounter summary. 4 34w1d Inpatient data not displayed here. See encounter summary. 4 35w3d Inpatient data not displayed here. See encounter summary. 4 36w1d Inpatient data not displayed here. See encounter summary. 4 37w1d Inpatient data not displayed here. See encounter summary. 5 39w1d Inpatient data not displayed here. See encounter summary. Notes Progress Notes - Hospital En counter - 12/12/2024 - GA:39w1d 12/12/2024 - 39w1d - Sneha Ellison MD Post Progress Note Delivery Date/Time: 12/10/2024 4:31 AM Delivery method: Vaginal [[id number]] Subjective Flatus: Yes Pain: Well controlled Diet: Tolerating regular diet. Ambulating independently Voiding spontaneously Lochia equal to menses Doing well this am. Received home BP text. Scheduled Medications docusate sodium, 100 mg, oral, BID ferrous sulfate, 325 mg, oral, Daily lidocaine, 2 patch, transdermal, Q24H viatmin, 1 tablet, oral, Daily polyethylene glycol, 17 g, oral, Daily PRN Medications acetaminophen benzocaine-menthoL calcium carbonate human papillomavirus 9-valent hydrocortisone ibuprofen dsdqllc-enkqn-lrjbpog medroxyPROGESTERone ondansetron ODT OR ondansetron varicella zoster Vitals: Temp: [36.5 ??C (97.7 ??F)-36.6 ??C (97.9 ??F)] 36.6 ??C (97.9 ??F) Pulse: [75-79] 76 BP: (125-126)/(65-81) 126/81 Resp: [16-18] 16 SpO2: [98 %-100 %] 100 % No intake or output data in the 24 hours ending 12/12/24 0720 Physical Exam General: No acute distress. Cardiovascular: Regular rate and rhythm. Lungs: Non-labored. Abdomen: Soft, non-distended, non-tender to palpation. Fundus below umbilicus. Extremities: Warm and well-perfused. Neuro: Globally intact Recent Labs Lab Units 12/09/24 0747 WBC K/cumm 8.7 HEMOGLOBIN g/dL 9.1* HEMATOCRIT % 28.8* PLATELETS K/cumm 224 Assessment and Plan 24 y.o. PPD#2from . Problem Care Following Vaginal Delivery # ID: Afebrile. No signs/symptoms of infection. [...] task not sent. Desires discharge home today. Sneha Ellison MD 12/11/24 I have reviewed the above documentation and edited where appropriate. Anticipate discharge today. Sarah Valdovinos MD, MPH Obstetrics & Gynecology, PGY-4 12/12/24 Cosigned by Marisa Flores MD at 12/12/2024 12:51 PM PHONE OPERATOR E OPERATOR E OPERATOR E OPERATOR Associated attestation - Marisa Flores MD - 12/12/2024 12:51 PM PHONE OPERATOR Attending attestation: The above provider saw and examined the patient, we discussed their findings, and I am in agreement with the plan. I did not personally examine the patient. Marisa Flores MD 12/11/2024 - 39w1d - Jacy Hwang, [facility] Reason for Admission MOB (Genny Hercules 2000) was admitted on 12/09/2024 for Encounter for induction of labor [Z34.90]. Social Work referral for SDOH check in. Medical History [facility] [employer] care has been established with [facility]. Pediatric follow-up to be scheduled with [facility]. Medical insurance coverage is through [employer]. Information Baby boy was born on [birth year]24 at EGA 39 weeks and has been named Sudhakar Cloud. Delivery was Vaginal. weighed 6 lb 2.8 oz at delivery. Empire will be breast/formula fed. This is mother's second child. Social History Current address is [address] [place] [phone], where she lives with her children. Currently [phone] is the best phone number for future contact. Mother noted to have 2 other child(jese): 1) 06/12/21- Boy 2) 08/05/22-boy MOB reports that significant other will be a positive support for her and her child. Father of the baby, Sudhakar Cloud, can be reached at [phone]. FOB has been present and supportive at the hospital. Mood and Anxiety Genny Hercules describes her mood during as normal, no concerns noted. Social Work and Genny Hercules discussed the signs and symptoms of Mood and Anxiety Disorder. Social Work discussed and normalized increase in emotions and the importance of self-care. Social Work encouraged new mom to take time for herself and utilize supports available. Available support systems reviewed, including: significant other. Warning signs reviewed and MOB encouraged to seek medical and mental health treatment if symptoms arise including possible medication management. MOB engaged in conversation and demonstrates knowledge. Resources Provided and Goals Addressed Social Determinants of Health: Transportation Needs: No Transportation Needs (12/11/2024) PRAPARE - Transportation Lack of Transportation (Medical): No Lack of Transportation (Non-Medical): No Social Connections: Socially Isolated (12/11/2024) Social Connection and Isolation Panel [NHANES] Frequency of Communication with Friends and Family: More than three times a week Frequency of Social Gatherings with Friends and Family: More than three times a week Attends Mandaen Services: Never Active Member of Clubs or Organizations: No Attends Club or Organization Meetings: Never Marital Status: Never Food Insecurity: No Food Insecurity (12/11/2024) Hunger Vital Sign Worried About Running Out of Food in the Last Year: Never true Ran Out of Food in the Last Year: Never true Housing Stability: Low Risk (12/11/2024) Housing Stability Vital Sign Unable to Pay for Housing in the Last Year: No Number of Times Moved in the Last Year: 0 Homeless in the Last Year: No Financial Resource Strain: Low Risk (12/11/2024) Overall Financial Resource Strain (CARDIA) Difficulty of Paying Living Expenses: Not hard at all Available community resources discussed. Patient denied any current concerns. SW provided Nurses for Newborns, Safe Sleep location, PMADS packet, and [employer] information provided. MOB has diapers, safe sleep location, bottles, clothing, and car seat for . MOB reports no barriers to accessing food, transportation, support, or finances. Medicaid transportation discussed and education provided on how to schedule rides to medical appointments. Strengths MOB is open and receptive to Social Work intervention, education, and resources. Safe Discharge Plan Mother bonding well with . Preparations have been made at home for and social supports are available. Follow-up medical care has been arranged. Family is connected to resources and will utilize services as needed. There are no concerns for a safe discharge for with family. Social Work will follow for support and additional needs should they arise. URSZULA Savage, ABIODUN [phone] [employer] and Field Supervisor [employer] E OPERATOR 12/11/2024 - 39w1d - Twila Hermosillo MD Post Progress Note Delivery Date/Time: 12/10/2024t 4:31 AM Delivery method: Vaginal [[id number]] Subjective Flatus: Yes Pain: Well controlled Diet: Tolerating regular diet. Ambulating independently Voiding spontaneously Lochia greater than menses Pt reports doing well this morning. Did pass a blood clot overnight but bleeding stable since then. Scheduled Medications docusate sodium, 100 mg, oral, BID ferrous sulfate, 325 mg, oral, Daily lidocaine, 2 patch, transdermal, Q24H viatmin, 1 tablet, oral, Daily polyethylene glycol, 17 g, oral, Daily PRN Medications acetaminophen benzocaine-menthoL calcium carbonate hydrocortisone ibuprofen anqnuwp-xfysy-gqsebmf medroxyPROGESTERone ondansetron ODT OR ondansetron varicella zoster Vitals: Temp: [36.6 ??C (97.9 ??F)-36.9 ??C (98.4 ??F)] 36.6 ??C (97.9 ??F) Pulse: [68-74] 70 BP: (119-134)/(59-74) 119/59 Resp: [14-18] 18 SpO2: [97 %-100 %] 98 % No intake or output data in the 24 hours ending 12/11/24 0716 Physical Exam General: No acute distress. Cardiovascular: Regular rate and rhythm. Lungs: Non-labored. Abdomen: Soft, non-distended, non-tender to palpation. Fundus below umbilicus. Extremities: Warm and well-perfused. Neuro: Globally intact Recent Labs Lab Units 12/09/24 0747 WBC K/cumm 8.7 HEMOGLOBIN g/dL 9.1* HEMATOCRIT % 28.8* PLATELETS K/cumm 224 Assessment and Plan 24 y.o. PPD#1from . Problem Care Following Vaginal Delivery # ID: Afebrile. No signs/symptoms of infection. #VZV NI: for varivax PP #hx of Trichomonas: neg on admission #HPV vaccination: discussed w/ patient her HPV vaccine history and does not recall receiving this. Will give first dose on , ordered. # Heme: QBL 519 mL. Hemodynamically stable. # CV/Pulm: Gestational hypertension - Blood pressures well controlled on no meds. Asymptomatic, denies MCELROY/RUQ pain/vision changes. CBC/CMP wnl, UPC 0.122. To be enrolled in remote blood pressure monitoring, consent signed, order placed. #Hx of PreE # GI/: Tolerating PO. Voiding spontaneously. # Pain: Controlled with above regimen. # MOC: Depo-provera, ordered. # MOF: Both formula and . Urine drug screen not indicated. Patient informed of results: N/A. # Post DVT prophylaxis: The patient has the following MAJOR risk factors none and the following MINOR risk factors parity >/=3. SCDs ordered for VTE prophylaxis. # Disposition: Follow up task not sent. Continue routine care. Sneha Ellison MD 12/11/24 Laborist Attestation I have seen and discussed the patient, Genny Hercules, with the above provider and I am in agreement with the plan as documented in the resident's note. PPD1 from c/b gHTN and anemia. BPs controlled on no medications. Enrolled in home BP monitoring. Iron ordered for anemia. Desires Depo for contraception. Continue routine PP care. Twila Hermosillo MD Cosigned by Epi Guzman MD at 12/13/2024 10:11 PM PHONE OPERATOR E OPERATOR E OPERATOR E OPERATOR E OPERATOR Associated attestation - Epi Guzman MD - 12/13/2024 10:11 PM PHONE OPERATOR I have reviewed and agree with fellow's documentation and management. I did not see the patient on this date of service. Epi Guzman MD 12/10/2024 - 39w1d - Erica Mendoza MD Labor Update Note S: Patient s/p epidural O: BP 125/82 Pulse 80 Temp 37 ??C (98.6 ??F) (Oral) Resp 16 Ht 163 cm (5' 4.17 ) Wt 146 lb 11.2 oz (66.5 kg) LMP 10/07/2023 (Exact Date) SpO2 100% BMI 25.05 kg/m?? SVE: Lip/rim (Comment) /95 /-1 Monitoring: Baseline: 125 bpm, Variability: Moderate, Accelerations: Absent and Decelerations: Yes, intermittent variable Uterine Activity: Contractions present, q2-3 minutes A/P: 24 y.o. at 39w1d Category II tracing, reassured by moderate variability Vitals: gHTN, most recently normotensive Additional medications/infusions: oxytocin - will continue to titrate per protocol -OT currently at 14 -For repeat cervical exam shortly, anticipate vaginal delivery soon riskLD was referenced in the care of this patient and alerts were managed clinically. Erica March MD E OPERATOR 12/10/2024 - 39w1d - Chary Robbins MD Labor Update Note S: Patient feeling painful contractions, tolerating them with nitrous and 1 dose of stadol ordered O: BP 130/77 Pulse 74 Temp 36.8 ??C (98.2 ??F) (Oral) Resp 16 Ht 163 cm (5' 4.17 ) Wt 146 lb 11.2 oz (66.5 kg) LMP 10/07/2023 (Exact Date) SpO2 99% BMI 25.05 kg/m?? SVE: 4 50 /-3 Monitoring: Baseline: 130 bpm, Variability: Moderate, Accelerations: Present and Decelerations: None Uterine Activity: Contractions present, q4 minutes A/P: 24 y.o. at 39w0d Category 1 tracing Vitals: gHTN, UPC ordered not yet obtained Additional medications/infusions: - oxytocin - will continue to titrate per protocol, currently at 14 - s/p FB - Plan to discuss AROM after some improved pain control Chary Robbins MD E OPERATOR 12/09/2024 - 39w0d - Kamilah Nelson, Labor Update Note S: Patient feeling painful contractions, tolerating them well with nitrous O: BP 135/88 Pulse 73 Temp 36.8 ??C (98.2 ??F) (Oral) Resp 16 Ht 163 cm (5' 4.17 ) Wt 146 lb 11.2 oz (66.5 kg) LMP 10/07/2023 (Exact Date) SpO2 100% BMI 25.05 kg/m?? SVE: /-3 Monitoring: Baseline: 130 bpm, Variability: Moderate, Accelerations: Present and Decelerations: None Uterine Activity: Contractions present, q4 minutes A/P: 24 y.o. at 39w0d Category 1 tracing Vitals: Few MR pressures, first at 1400. Not yet meeting criteria for gHTN. Additional medications/infusions: - oxytocin - will continue to titrate per protocol, currently at 8 - s/p FB - Patient desires to wait for AROM until next check Kamilah Nelson DO Addendum: meeting criteria for gHTN. Ordered UPC Anabell Lloyd MD E OPERATOR E OPERATOR E OPERATOR 12/09/2024 - 39w0d - Brenda Graves MD Labor Update Note S: Patient comfortable O: BP 135/94 Pulse 74 Temp 36.8 ??C (98.2 ??F) (Oral) Resp 16 Ht 163 cm (5' 4.17 ) Wt 146 lb 11.2 oz (66.5 kg) LMP 10/07/2023 (Exact Date) SpO2 100% BMI 25.05 kg/m?? SVE: /otable Monitoring: Baseline: 135 bpm, Variability: Moderate, Accelerations: Present and Decelerations: None Uterine Activity: Contractions present, q4-6 minutes A/P: 24 y.o. at 39w0d Category I tracing Vitals: MR BP, not yet 4 hrs apart. Will continue to monitor. Additional medications/infusions: oxytocin - will continue to titrate per protocol Cook catheter in place. Brenda Graves MD PGY-1, Department of Obstetrics and Gynecology E OPERATOR 12/09/2024 - 39w0jacek - Kamilah Nelson DO Mechanical Cervical Ripening Device Insertion Note A Norris Balloon was placed and filled with 60 cc of fluid in the uterine balloon and placed on tension at 1330. Patient tolerated the placement well with nitrous oxide. Cat I strip. Will start OT. Kamilah Nelson DO E OPERATOR 12/09/2024 - 39welsa - Kamilah Nelson DO Labor Update Note S: Patient comfortable O: BP 101/55 Pulse 80 Temp 36.8 ??C (98.3 ??F) (Oral) Resp 16 Ht 163 cm (5' 4.17 ) Wt 146 lb 11.2 oz (66.5 kg) LMP 10/07/2023 (Exact Date) SpO2 100% BMI 25.05 kg/m?? SVE: /Ballotable Monitoring: Baseline: 130 bpm, Variability: Moderate, Accelerations: Present and Decelerations: None Uterine Activity: Contractions present, q6-7 minutes A/P: 24 y.o. at 39w0d Category 1 tracing Vitals: reviewed and normal Additional medications/infusions: - s/p Miso x1 - Plan for OT and FB riskLD was referenced in the care of this patient and alerts were managed clinically. Kamilah Nelson DO E OPERATOR E OPERATOR 12/09/2024 - 39hemal - Brenda Graves MD Labor Update Note S: Patient comfortable O: BP 137/81 Pulse 80 Temp 36.8 ??C (98.3 ??F) (Oral) Resp 16 Ht 163 cm (5' 4.17 ) Wt 146 lb 11.2 oz (66.5 kg) LMP 10/07/2023 (Exact Date) SpO2 100% BMI 25.05 kg/m?? SVE: Fingertip /25 /Ballotable Monitoring: Baseline: 130 bpm, Variability: Moderate, Accelerations: Present and Decelerations: None Uterine Activity: Irregular contractions A/P: 24 y.o. at 39w0d Category I tracing Vitals: reviewed and normal Additional medications/infusions: none Misoprostol placed 0900. Plan to [address] cook catheter when patient is amenable after eating. Brenda Graves MD PGY-1, Department of Obstetrics and Gynecology E OPERATOR Progress Notes - Office Visi t - 12/03/2024 - GA:38w1d 12/03/2024 - 38w1d - De AsntiagoMartine roberts MD OB RETURN VISIT 12/03/2024 Subjective: Genny Hercules is a 24 y.o. at 38w1d who presents for her return OB visit. c/b LPNC, trich (s/p neg LATRICIA 11/14), GBSuria, hx preE, resolved FGR. Not taking her BP at home. Has not had any preE symptoms, BP wnl today. Of note, pt will have to ride the bus to her IOL and may not make it exactly by 6am. movement: Yes Vaginal Bleeding: No LOF: No Contractions/cramping: none Objective: Vitals: 12/03/24 1333 BP: 106/52 Pulse: 83 Resp: 18 SpO2: 99% Weight: 140 lb (63.5 kg) FHR: Present and within normal limits Gen: No acute distress. Abdomen: Soft, nontender, gravid. Fundal Height: ongoing Juan Extremities: Warm, well perfused. No lower extremity edema/erythema/tenderness Urine: Lab Results Component Value Date GLUCOSEUR Negative 09/27/2024 KETONESU Negative 09/27/2024 PROTUR 16.4 10/08/2024 Assessment/Plan: 24 y.o. at 38w1d. Problem List Gynecologic and Obstetric Problems Trichomonal vulvovaginitis Overview Trich + in [facility] 09/27/24, Rx metronidazole sent. Patient completed course. Trich neg at [facility] on 11/14/24 RESOLVED - affected by growth restriction Overview FGR diagnosed @ 29w6d: EFW 1290g (12%), AC 8%. BPP 07/08, normal dopplers. RESOLVED 11/26: EFW 17%, AC 20% S/p counseling Plans for 39 week rrIOL - scheduled 12/09 Other Hx of preeclampsia, prior , currently Overview Hx preeclampsia with severe features in G1 Chart review performed 10/22, no evidence of cHTN (one MR BP in ED for vomiting) Baseline labs: Hgb 9.8, PLT 292, Cr 0.61, AST/ALT , UPC 0.122 (10/08/24) Plan: - continue bASA - continue BP monitoring at home Encounter for supervision of normal , antepartum Overview 1st Trimester: [x] Dating Criteria: 1T If [...] [x] Genetic Screening: s/p LR NIPT at [facility] . [x] CF/SMA carrier screening: deferred [x] [...] 1hr GTT (24-28wks): wnl [x] Flu Shot (Aug-Oct): 10/22/24 [x] Tdap (27-36wks): 10/08/24 [x] Rhogam [...] indicated): neg/neg/trich positive [x] RSV Vaccine (32-36w6d, Aug-Dec): given 10/22 [] Final discussion (Baby Friendly, [...] education: completed in all 3 trimesters [x] Tank Insulator Rubber: list given 12/03 [x] Car seat discussed [] PP depression counseling Anemia Overview History - Hemoglobin 9.8 g/dL on 10/08/24 - MCV 86 fL - Hemoglobin electrophoresis normal pattern - Ferritin 34 S/p counseling Plan: - continue PO iron, tolerating RTC for IOL. Seen and discussed with Dr. Hunt. Martine De Santiago MD Cosigned by Johanna Hunt MD at 12/07/2024 1:21 PM PHONE OPERATOR E OPERATOR E OPERATOR Associated attestation - Johanna Hunt MD - 12/07/2024 1:21 PM PHONE OPERATOR I have seen and examined the patient. I agree with the findings and plan of care as documented in the resident/fellow's note. Progress Notes - Office Visi t - 11/26/2024 - GA:37w1d 11/26/2024 - 37w1d - Álvaro feliciano, Irma Pineda MD OB RETURN VISIT Subjective: Genny Hercules is a 24 y.o. at 37w1d who presents for her return OB visit. Her is complicated by history preeclampsia in G1 , resolved FGR, trichomonas infection. Presented to [facility] on 11/14 for LOF, no evidence of PPROM. Denies continued leakage but does report discharge. Was diagnosed with trichomonas at [facility] visit, has not yet taken flagyl. US today shows resolved FGR, AC 20% and EFW 17%. Vertex presentation. movement: Yes Vaginal Bleeding: No LOF: No Contractions/cramping: none Objective: Vitals: 11/26/24 1436 BP: 122/76 BP Location: Left arm Patient Position: Sitting Pulse: 88 Resp: 19 SpO2: 100% Weight: 142 lb (64.4 kg) FHR: Confirmed on US today Gen: No acute distress. Abdomen: Soft, nontender, gravid. Fundal Height: deferred Extremities: Warm, well perfused. No lower extremity edema/erythema/tenderness Urine: Lab Results Component Value Date GLUCOSEUR Negative 09/27/2024 KETONESU Negative 09/27/2024 PROTUR 16.4 10/08/2024 Assessment/Plan: 24 y.o. at 37w1d . Problem List Encounter for supervision of normal , antepartum - Primary Overview 1st Trimester: [x] Dating Criteria: 1T If [...] [x] Genetic Screening: s/p LR NIPT at [facility] . [x] CF/SMA carrier screening: deferred [x] [...] 1hr GTT (24-28wks): wnl [x] Flu Shot (Aug-Oct): 10/22/24 [x] Tdap (27-36wks): 10/08/24 [x] Rhogam [...] indicated): neg/neg/trich positive [x] RSV Vaccine (32-36w6d, Aug-Dec): given 10/22 [] Final discussion (Baby Friendly, [...] [] education: completed in all 3 trimesters [] Tank Insulator Rubber: list sent, still deciding [] Car seat discussed [] PP depression counseling RESOLVED - affected by growth restriction Overview FGR diagnosed @ 29w6d: EFW 1290g (12%), AC 8%. BPP 07/08, normal dopplers. RESOLVED 11/26: EFW 17%, AC 20% S/p counseling Plans for 39 week rrIOL Encouraged to cancel NST/BPP appointments Hx of preeclampsia, prior , currently Overview Hx preeclampsia with severe features in G1 Chart review performed 10/22, no evidence of cHTN (one MR BP in ED for vomiting) Baseline labs: Hgb 9.8, PLT 292, Cr 0.61, AST/ALT , UPC 0.122 (10/08/24) Plan: - continue bASA - continue BP monitoring at home RTC 1 week. Seen and discussed with Dr. Swanson. Irma Siu MD Cosigned by Abigail Swanson MD at 12/01/2024 10:25 AM PHONE OPERATOR E OPERATOR E OPERATOR Associated attestation - Abigail Swanson MD - 12/01/2024 10:25 AM PHONE OPERATOR I have seen and examined the patient. I agree with the findings and plan of care as documented in the resident/fellow's note. Progress Notes - Office Visi t - 11/19/2024 - GA:36w1d 11/19/2024 - 36w1d - Yola Parry MD No Show. E OPERATOR Progress Notes - Procedure v isit - 11/02/2024 - GA:33w5d 11/02/2024 - 33w5d - Laura Tapia, SUZIE NST reactive per Dr. Ballard and Dr. Clayton E OPERATOR Progress Notes - Procedure v isit - 10/22/2024 - GA:32w1d 10/22/2024 - - Erika Cid RN NST not performed per provider d/t passing BPP 07/08 E OPERATOR Progress Notes - Office Visi t - 10/22/2024 - GA:32w1d 10/22/2024 - - Álvaro feliciano, Irma Pineda MD OB RETURN VISIT Subjective: Genny Hercules is a 24 y.o. at 32w1d who presents for her return OB visit. Her is complicated by history preeclampsia in G1 , FGR (AC 8%), trichomonas infection. Taking BP at home and all normotensive. Compliant with bASA. Of note, chart review performed. No evidence of chronic hypertension. Patient had elevated BPs immediately during last delivery, otherwise one mild range BP during an ED visit for vomiting. No other MR BPs noted in ambulatory setting, including during this . movement: Yes Vaginal Bleeding: No LOF: No Contractions/cramping: none Objective: Vitals: 10/22/24 1306 BP: 98/52 Pulse: 116 Resp: 18 SpO2: 97% Weight: 132 lb (59.9 kg) FHR: Confirmed on US today Gen: No acute distress. Abdomen: Soft, nontender, gravid. Fundal Height: deferred Extremities: Warm, well perfused. No lower extremity edema/erythema/tenderness Urine: Lab Results Component Value Date GLUCOSEUR Negative 09/27/2024 KETONESU Negative 09/27/2024 PROTUR 16.4 10/08/2024 Assessment/Plan: 24 y.o. at 32w1d. Problem List Encounter for supervision of normal , antepartum Overview 1st Trimester: [x] Dating Criteria: 1T If < 8w6d (change due date if >5d difference). If 9w0d to 15w6d (change due date if > 7d difference) [x] Labs: Rh pos, Ab neg, CBC 9.8, Rubella IM, VZV NI, HIV NR, RPR NR, HepBSAg NR, Hep C Ab NR [x] GC/CT/Trich: Trich pos, LATRICIA due October 2024 [x] UCx: GBSuria [x] vitamins [x] Genetic Screening: s/p LR NIPT at [facility] . [x] CF/SMA carrier screening: deferred [x] [...] 1hr GTT (24-28wks): wnl [x] Flu Shot (Aug-Oct): 10/22/24 [x] Tdap (27-36wks): 10/08/24 [x] Rhogam [...] 10/08 [x] GC/CT/Trich (if indicated): neg/neg/trich positive 09/27, needs LATRICIA at next visit [x] RSV Vaccine (32-36w6d, Aug-Dec): given 10/22 [] Final discussion (Baby Friendly, Skin to Skin, PP LC Support) Counseling: [x] Method of delivery: anticipate vaginal [] Bottle of CHG 4% and hand out provided @ 36wks (if planned) [] Timing of delivery: pending EFW/UAD, currently 39 weeks [x] MOC: DMPA [x] MOF: both [] Virtual 2 week visit candidate ([place] resident, 1-2nd degree perineal laceration, minimal /delivery/ complications) [] education: completed in all 3 trimesters [] Tank Insulator Rubber: list sent, still deciding [] Car seat discussed [] PP depression counseling Trichomonal vulvovaginitis Overview Trich + in [facility] 09/27/24, Rx metronidazole sent Plan: - LATRICIA at next visit affected by growth restriction Overview FGR diagnosed @ 29w6d: EFW 1290g (12%), AC 8%. BPP 07/08, normal dopplers. Counseling Counseled patient that growth restriction (FGR) is a common complication of and is diagnosed with an ultrasound showing an estimated weight or abdominal circumference less than the 10th percentile for gestational age. Discussed the common causes of FGR including maternal medical conditions (pregestational diabetes, renal disease, autoimmune disease, hypertension), substance use, teratogen exposure, infectious diseases, genetic and structural disorders, and placental disorders/umbilical cord abnormalities which all cause growth restriction through the same final common pathway: sub-optimal uterine/placental perfusion and nutrition. Also discussed that this ultrasound finding may also represent a constitutionally small fetus and may not be pathologic. Chromosomal disorders and congenital malformations are responsible for approximately 20% of cases, and sub-optimal perfusion of the placental circulation accounts for 15-30% of cases. Discussed management of IUGR includes serial growth ultrasounds, umbilical artery doppler assessments, and testing, the goal of which is to minimize the risk of stillbirth and guide appropriate delivery timing. Plan [x] Genetic testing: LR NIPT. Counseled on amniocentesis, declines. Offered HROB consult, declines. [x] Serial growth scans - next due 10/27 [x] Weekly BPP/Dopplers/NST, ordered [x] Delivery pending EFW/UAD; currently 39w IOL Relevant Orders US Ob Limited Hx of preeclampsia, prior , currently Overview Hx preeclampsia with severe features in G1 Chart review performed 10/22, no evidence of cHTN (one MR BP in ED for vomiting) Baseline labs: Hgb 9.8, PLT 292, Cr 0.61, AST/ALT , UPC 0.122 (10/08/24) Plan: - continue bASA - continue BP monitoring at home Anemia Overview History - Hemoglobin 9.8 g/dL on 10/08/24 - MCV 86 fL - Hemoglobin electrophoresis normal pattern - Ferritin 34 Counseling Anemia in is diagnosed when hemoglobin (g/dL) and hematocrit (percentage) levels are below 11 g/dL and 33%, respectively, in the first trimester; 10.5 g/dL and 32%, respectively, in the second trimester; and 11 g/dL and 33%, respectively, in the third trimester. The most common cause of anemia in is iron deficiency, however other inherited and acquired causes must be evaluated for. Plan: - continue PO iron, consider discussion regarding IV iron at next visit RTC 1 week for NST/UAD/BPP. RTC for EOB in 2 weeks. Seen and discussed with Dr. Johnson. Irma Siu MD Cosigned by Nevaeh Johnson MD at 10/25/2024 4:27 PM PHONE OPERATOR E OPERATOR E OPERATOR E OPERATOR Associated attestation - Nevaeh Johnson MD - 10/25/2024 4:27 PM PHONE OPERATOR I have seen and examined the patient with resident physician Dr. Siu. I agree with the findings and plan of care as documented in the resident/fellow's note. Genny presents for a return visit at 32w1d. Diagnosed with FGR based on AC 8%, EFW 1290g (12%), BPP 8/8, and Doppler assessment normal today. Counseled on FGR, recommended testing. Reviewed her BP on review flowsheets and no evidence of cHTN, hx of gHTN with PreE in prior , and is on ASA. Will plan for LATRICIA of trichomonas at next visit. RSV and flu vaccine today. Nevaeh Jhonson MD Progress Notes - Procedure v isit - 10/14/2024 - GA:31w0d 10/14/2024 - 31w0d - Akua Minor, SUZIE Pt presents to NST today. NST reactive per Dr. Boss, strip sent to Dr. Montano for review. All questions answered with pt's expressed understanding. E OPERATOR Progress Notes - Initial Pre - 10/08/2024 - GA:30w1d 10/08/2024 - 30w1d - Adelina Herrera NP OB INITIAL VISIT Genny Hercules is a 24 y.o. with CHTN, IUGR, & trich (took last dose of Flagyl today) who presents for her initial OB visit, at 30w1d by 1T US at [facility]. is desired. Patient already taking PNV. Vaginal Bleeding: No LOF: No Contractions/cramping: none No past medical history on file. No past surgical history on file. OB History Para Term AB Living 4 3 2 0 0 2 SAB IAB Ectopic Multiple Live Births 0 0 0 0 2 # Outcome Date GA Lbr José Miguel/2nd Weight Sex Type Anes PTL Lv 4 Current 3 Term 08/05/22 39w6d 02:10 / 00:34 3.34 kg (7 lb 5.8 oz) M Vag-Spont EPI N MACEY Name: ESME HERCULES Apgar1: 8 Apgar5: 9 2 Para 06/12/21 3.544 kg (7 lb 13 oz) M Vag-Spont EPI MACEY 1 Term SALES [employer] History: Pap History: NILM 06/24/24, Due 2026 STI History: Trich: + in [facility] 09/27/24, Rx sent LATRICIA in 3-4 weeks Genetic History: [-] Mother's Age > 34 years [-] Sickle Cell Disease or Trait [-] Thalasemia (German, Tunisian, Medit or ; MCV <80) [-] Fabricio Sachs Disease (Shinto, Cajun, Palauan Greek) [-] Down's Syndrome [-] Neural Tube Defects (Meningomyelocele, Spina Bifida or Anencephaly) [-] Other Developmental Delay [-] Cystic Fibrosis [-] [place]'s Chorea [-] Muscular Dystrophy [-] Hemophilia [-] Other Heritable condition HOME MEDICATIONS : aspirin 81 mg enteric coated tablet [id number] cb,[id number]-[id number]-bps-dha 27-1-50-250 mg combo pack Allergies as of 10/08/2024 - Reviewed 10/08/2024 Allergen Reaction Noted Lasara Swelling and Rash 10/18/2023 No family history on file. Social History Tobacco Use Smoking status: Never Smokeless tobacco: None Substance and Sexual Activity Drug use: Not Currently Sexual activity: None Alcohol Use: Not At Risk (08/04/2022) AUDIT-C Frequency of Alcohol Consumption: Never Average Number of Drinks: Not on file Frequency of Binge Drinking: Not on file Physical Exam: BP 108/60 Pulse 102 Resp 18 Ht 157.5 cm (5' 2 ) Wt 129 lb (58.5 kg) LMP 10/07/2023 (Exact Date) SpO2 100% BMI 23.59 kg/m?? Lab Results Component Value Date GLUCOSEUR Negative 09/27/2024 KETONESU Negative 09/27/2024 PROTURPOC Negative 09/27/2024 POCURNITRITE Negative 09/27/2024 LEUKESTUR 1+ (A) 09/27/2024 General: NAD, mood appropriate Pulmonary: Non-labored Cardiovascular: Regular rate Abdomen: soft, non-tender,gravid Extremities: Warm and well perfused GENITAL EXAM: defers Labs: Lab Results Component Value Date ABORH O Positive 05/18/2024 SCRIBEDABORH O+ 03/04/2022 IDCOOMB Negative ABSC 05/18/2024 [id number] Nonreactive 10/18/2023 LABRPR Nonreactive 10/18/2023 SCRRUBELIGG Immune 03/04/2022 Dated by 1T US at [facility]. +FHT today Serial NST/BPP/UA dopplers and Juan ordered Assessment/Plan: 24 y.o. at 30w1d. Problem List Encounter for supervision of normal , antepartum - Primary Overview 1st Trimester: [x] Dating Criteria: Dated by 1T BSUS on 05/18/24 (EDUARDO 12/16/24) [] Labs: T&S (Ab): H/H: Rubella: VZV: HIV: RPR: Hep B: Hep C: ordered 10/08/24 [] HgbA1c: (5.7-6.4: no further test until 2T screen, 6.5: refer to CDP) ordered 10/08/24 [] NG/CT: Trich: + in [facility] 09/27/24, Rx sent LATRICIA in 3-4 weeks [] UCx: ordered 10/08/24 [] Hgb electrophoresis: ordered 10/08/24 [x] Pap: NILM 06/24/24, Due 2026 [] Panorama: [] Carrier Screen: [x] ASA at 12 weeks (if indicated): ordered 10/08/24 [] Feeding Preferences Survey: benefits of discussed with patient at RN IOB 2nd Trimester: [x] Anatomy ultrasound: 10/06/24 @ 29w6d 1290g (12%), AC 8%. EDUARDO 12/16/24. BPP 07/08, norm dopplers. [x] Placenta: posterior, no previa [] H/H: Plt: Ferritin: RPR: ordered 10/08/24 [] 1hr GTT (24-28wks): ordered 10/08/24 [x] PNBHS referral (if indicated): n/a EPDS= 3 [x] Second/Third trimester education packet given - 10/08/24 [x] Flu Shot (Aug-Oct): declined 10/08/24 [x] Tdap (27-36wks): administered 10/08/24 [] Rhogam (if Rh neg): [] RSV Vaccine (Aug-Dec @ 32-36w6d) weeks [] Childbirth classes discussed [x] education (colostrum, expected breast changes). 3rd Trimester: [] H/H: Plt: HIV: RPR: T&S: [] GBS: [] NG/CT: Trich: [x] Final discussion-Discussed Baby Friendly-skin to skin, rooming in, support, formula safety. [x] Breast Pump order form provided: 10/08/24 Counseling: [x] Discussed anticipated weight gain in [] Method of delivery: [] Bottle of CHG 4% and hand out provided @ 36wks (if planned) [] Timing of delivery: [x] Method of Feeding: Discussed baby friendly, skin to skin, rooming in, support. Formula safety. [x] education: completed in all 3 trimesters [x] Method of Contraception: Depo [x] Tank Insulator Rubber: list sent to patient [] Car seat discussed [] PP depression counseling [] A visit is recommended at 2 and 6 weeks . There is a virtual visit option at 2 weeks . During that appointment we will check BP (if indicated), mental and physical wellness. Contraception will be discussed if patient chooses. Your discharge provider will recommend scheduling these visits upon discharge from the hospital. [] Gardasil vaccine: None on file, recommend vaccination Relevant Orders ECG 12 lead Comprehensive metabolic panel Protein / creatinine ratio, urine, random GTT 50gm 1hr gestational screen Ferritin CBC without differential Hemoglobin A1c Hepatitis B Surface Antigen Blood Hepatitis C antibody Blood HIV 1/2 Antibody plus p24 Antigen Blood Rubella IgG antibody Blood Type and screen Urine culture Urine, clean voided Varicella Zoster IgG antibody Blood RPR Blood Hemoglobin analysis by electrophoresis nonstress test - US Ob Limited US Ob Follow Up Trichomonal vulvovaginitis Overview Trich + in [facility] 09/27/24, Rx metronidazole sent -Plan LATRICIA in 3-4 weeks affected by growth restriction Overview Newly Diagnosed FGR/IUGR: 10/06/24 @ 29w6d 1290g (12%), AC 8%. EDUARDO 12/16/24. BPP 07/08, norm dopplers. Counselin10/08/24 growth restriction (FGR) is diagnosed when the ultrasound estimated weight is <10th% and/or the abdominal circumference is <10th% for gestational age. Causes of FGR include maternal, , and placental etiologies. These causes include dating errors, constitutional, maternal medical conditions, genetic conditions or aneuploidy, infections, or placental insufficiency. Workup for diagnosis of cause of FGR includes an amniocentesis for chromosomal microarray and cytomegalovirus testing depending on gestational age at diagnosis. There is a higher risk of stillbirth when FGR is diagnosed and further testing is offered to try to prevent this risk. The testing recommended includes weekly umbilical artery Dopplers and consideration of weekly biophysical profile and non-stress tests depending on gestational age after shared decision making with the patient. Repeat growth assessment is recommended every 3 weeks. Delivery timing depends on testing and umbilical artery Doppler results with the goal of 39 weeks if testing remains reassuring. Plan: [x] Transfer to HROB/Resident clinic- referral on 10/08/24 at IOB [] Offer amniocentesis for TAX ATTORNEY (and CMV testing if diagnosis <32 weeks) [] If diagnosis <28 weeks gestation, shared decision making with the patient regarding testing after discussion of pros/cons [] Weekly umbilical artery Dopplers vs. twice weekly testing [x] If diagnosis >28 weeks gestation, schedule for twice weekly testing (weekly BPP/UA Dopplers and weekly NST on Mon/Th or /Fri schedule)- ordered 10/08/24 [x] Serial growth ultrasounds every 3 weeks- ordered 10/08/24 [] Delivery timing pending testing and estimated weight Chronic hypertension Overview Counseling date: 10/08/24 Patient education - chronic hypertension is associated with an increased risk of complications including: FGR, stillbirth, superimposed pre-eclampsia with severe features (20-50%), placental abruption, hemorrhage, section, ad (iatrogenic 2/2 pre-eclampsia). There are some congenital anomalies associated with cHTN including hypospadias and esophageal atresia. Normal blood pressure patterns in include a decrease in blood pressure reaching its lowest point at 16-18 weeks with an increase in the third trimester. Pre-Eclampsia symptoms reviewed including headache, vision changes, RUQ Pain, LE edema. Discussed baseline pre-eclampsia labs (CBC, creatinine, AST, ALT) are recommended. A workup for end organ damage is also recommended, including an EKG and Urine Protein/Creatinine Ratio. A fundoscopic exam by ophthalmology is recommended as well, if one has not been performed within 12 months. A baby aspirin is recommended at 12 weeks for preeclampsia prevention. Additionally discussed the increased antepartum surveillance recommended in patients with chronic hypertension. Given the increased risk of IUGR/FGR, serial monthly growth scans are recommended starting at 28 weeks, with surveillance starting weekly at 32 weeks if on antihypertensive medication. If her hypertension remains mild with no need for medication, delivery at 39 weeks is recommended, although we discussed the possibility of earlier delivery for uncontrolled hypertension or pre-clampsia. CHTN is diagnosed by 2 blood pressures >140/90 at < 20weeks gestation or prior to . Goal pressures for are < 140/90 based on recent data from the CHAPS study in 2021.The strict goal for blood pressure reduced the risk of maternal pre-eclampsia, iatrogenic <35 weeks, placental abruption and and had no change in the incidence of low birthweight infants. CURRENT REGIMEN: ASA 81 mg daily until delivery- rx'd 10/08/24 Maternal Surveillance: [] Baseline Plt: K+: Cr: ALT/AST: ordered 10/08/24 [] Urine Protein/Creatinine Ratio: ordered 10/08/24 [] Baseline ECG with consideration of ECHO: (consider ECHO if diagnosed >4y rs or >30 yo) ordered 10/08/24 [] Ophthalmology referral: [x] Provide blood pressure cuff at initial visit with calibration (within 20 mm Hg of manual BP in clinic), blood pressure log given - call clinic if BP >140/90. Review log each visit. Provided cuff 10/08/24 [x] Educated on ASA 81 mg daily 12 weeks until delivery. ordered 10/08/24 Surveillance: [] Serial Growth ultrasounds every 4 weeks-start at 24 weeks. [] Once Weekly NSTs starting at 32 weeks if on AntiHTN Agent (IF Ultrasound scheduled can do BPP that week instead). [] Delivery at 39 weeks. Adelina Herrera NP Cosigned by Mely Kirby MD at 10/12/2024 2:44 PM PHONE OPERATOR E OPERATOR E OPERATOR E OPERATOR Associated attestation - Mely Kirby MD - 10/12/2024 2:44 PM PHONE OPERATOR I have reviewed the patient's history and physical and agree with the assessment and plan per Adelina Herrera NP. Mely Kirby MD Last Filed Vital Signs Vital Sign Reading Time Taken Comments Blood Pressure 123/66 12/12/2024 9:54 AM PHONE OPERATOR Pulse 74 12/12/2024 9:54 AM PHONE OPERATOR Temperature 36.5 ??C (97.7 ??F) 12/12/2024 9:54 AM CS T Respiratory Rate 16 12/12/2024 9:54 AM PHONE OPERATOR Oxygen Saturation 97% 12/12/2024 9:54 AM PHONE OPERATOR Inhaled Oxygen Concentration - - Weight 66.5 kg (146 lb 11.2 oz) 12/09/2024 7:11 AM PHONE OPERATOR Height 163 cm (5' 4.17 ) 12/09/2024 7:11 AM PHONE OPERATOR Body Mass Index 25.05 12/09/2024 7:11 AM PHONE OPERATOR Plan of Treatment Health Maintenance Due Date Last Done Comments Cervical Cancer Screening 2002 Meningococcal B Vaccine (1 of 2 - Patient Seeks Protection) 2018 Regular Well Visit/Exam 18-64 2020 Varicella Vaccines (2 of 2 - 13+ 2-dose series) 02/20/2021 01/23/2021 HPV Vaccines (2 - 3-dose series) 01/09/2025 12/12/2024 Chlamydia and Gonorrhea (GC/CT) Screening 09/27/2025 09/27/2024, 10/18/2023, 05/23/2021, Additional history exists Depression Screening 10/08/2025 10/08/2024 DTaP/Tdap/Td Vaccine (3 - Td or Tdap) 10/08/2034 10/08/2024, 04/05/2021 Hepatitis C Screening Completed 10/08/2024, 022 Influenza Vaccine Completed 10/22/2024, 01/23/2021 Pneumococcal vaccine <65 Aged Out No longer eligible based on patient's age to complete this topic Procedures Procedure Name Priority Date/Time Associated Diagnosis Comments NM AN PROCEDURE PLACEHOLDER Routine 12/09/2024 11:39 PM PHONE OPERATOR US OB LIMITED IP Routine 12/09/2024 11:13 AM PHONE OPERATOR Encounter for induction of labor TRICHOMONAS VAGINALIS PCR Routine 12/09/2024 9:06 AM PHONE OPERATOR CBC WITHOUT DIFFERENTIAL STAT 12/09/2024 7:47 AM PHONE OPERATOR TYPE AND SCREEN STAT 12/09/2024 7:47 AM PHONE OPERATOR RPR STAT 12/09/2024 7:47 AM PHONE OPERATOR US OB LIMITED Schedule Routine, Read Routine (OP Routine) 11/26/2024 1:34 PM PHONE OPERATOR affected by growth restriction OB LIMITED Schedule Routine, Read Routine (OP Routine) 11/19/2024 12:25 PM PHONE OPERATOR affected by growth restriction PAMG-1 PROTEIN MARKER (ROM) Routine 11/14/2024 11:42 AM PHONE OPERATOR US OB LIMITED Schedule Routine, Read Routine (OP Routine) 11/05/2024 10:21 AM PHONE OPERATOR Poor growth affecting management of mother, antepartum, fetus 1 of multiple gestation OB LIMITED Schedule Routine, Read Routine (OP Routine) 10/22/2024 12:32 PM PHONE OPERATOR Poor growth affecting management of mother, antepartum, fetus 1 of multiple gestation PROTEIN / CREATININE RATIO, URINE, RANDOM Routine 10/08/2024 6:23 PM PHONE OPERATOR Encounter for supervision of normal , antepartum, unspecified URINE CULTURE Routine 10/08/2024 4:03 PM PHONE OPERATOR Encounter for supervision of normal , antepartum, unspecified EGFR Routine 10/08/2024 3:07 PM PHONE OPERATOR Encounter for supervision of normal , antepartum, unspecified COMPREHENSIVE METABOLIC PANEL Routine 10/08/2024 3:07 PM PHONE OPERATOR Encounter for supervision of normal , antepartum, unspecified GTT 50GM 1HR GESTATIONAL SCREEN Routine 10/08/2024 3:07 PM PHONE OPERATOR Encounter for supervision of normal , antepartum, unspecified FERRITIN Routine 10/08/2024 3:07 PM PHONE OPERATOR Encounter for supervision of normal , antepartum, unspecified CBC WITHOUT DIFFERENTIAL Routine 10/08/2024 3:07 PM PHONE OPERATOR Encounter for supervision of normal , antepartum, unspecified HEMOGLOBIN A1C Routine 10/08/2024 3:07 PM PHONE OPERATOR Encounter for supervision of normal , antepartum, unspecified TYPE AND SCREEN Routine 10/08/2024 3:07 PM PHONE OPERATOR Encounter for supervision of normal , antepartum, unspecified HEMOGLOBIN ANALYSIS BY ELECTROPHORESIS Routine 10/08/2024 3:07 PM PHONE OPERATOR Encounter for supervision of normal , antepartum, unspecified HEPATITIS B SURFACE ANTIGEN Routine 10/08/2024 3:07 PM PHONE OPERATOR Encounter for supervision of normal , antepartum, unspecified HEPATITIS C ANTIBODY Routine 10/08/2024 3:07 PM PHONE OPERATOR Encounter for supervision of normal , antepartum, unspecified HIV 1/2 ANTIBODY PLUS P24 ANTIGEN Routine 10/08/2024 3:07 PM PHONE OPERATOR Encounter for supervision of normal , antepartum, unspecified RUBELLA IGG Routine 10/08/2024 3:07 PM PHONE OPERATOR Encounter for supervision of normal , antepartum, unspecified VARICELLA ZOSTER ANTIBODY, IGG Routine 10/08/2024 3:07 PM PHONE OPERATOR Encounter for supervision of normal , antepartum, unspecified RPR Routine 10/08/2024 3:07 PM PHONE OPERATOR Encounter for supervision of normal , antepartum, unspecified US OB 14 WEEKS OR OVER Schedule Routine, Read Routine (OP Routine) 10/06/2024 8:38 AM PHONE OPERATOR state, incidental N. GONORRHOEAE/C. TRACHOMATIS AMPLIFICATION STAT 09/27/2024 1:26 PM CDT from Last 3 Months or Most Recently Relevant to Health Maintenance Results * NM AN PROCEDURE PLACEHOLDER (12/09/2024 11:39 PM PHONE OPERATOR) Narrative Earl Padilla MD - 12/09/2024 11:39 PM PHONE OPERATOR Earl Padilla MD ? 12/09/2024 11:40 PM [...] * US Ob Limited (12/09/2024 11:13 AM PHONE OPERATOR) Anatomical Region Laterality Modality Abdomen N/A Ultrasound Narrative 12/09/2024 11:13 AM PHONE OPERATOR Vertex I have reviewed the images and agree with above. Joleen Montano MD us Joleen Montano MD IMG OB US PROCEDURES Final Result * Trichomonas vaginalis PCR Urine (12/09/2024 9:06 AM PHONE OPERATOR) Trichomonas DNA Not Detected Not Detected [facility] Comment: Interpretive Data This assay detects Trichomonas vaginalis by nucleic acid amplification testing (NAAT). This assay has been cleared by the [place] Food and Drug administration. The performance characteristics of this test have been verified by the [facility] Disease laboratory. Excess blood in specimens may be inhibitory and result in false negative results. ??The performance of this test has not been evaluated in women or individuals less than 18 years of age. Current Interpretive Data last revised 2023. Urine 12/09/2024 9:06 AM PHONE OPERATOR 12/09/2024 9:15 AM PHONE OPERATOR Joleen Montano MD LAB MICROBIOLOGY - G ENERAL ORDERABLES Final Result Performing Organization Address City/[facility]/ZIP Co de Phone Number [facility] Department [place] [address] [facility] * RPR Blood (12/09/2024 7:47 AM PHONE OPERATOR) [facility] RPR Nonreactive Nonreactive Blood 12/09/2024 7:47 AM PHONE OPERATOR 12/09/2024 8:05 AM PHONE OPERATOR us Epi Guzman MD LAB MICROBIOLOGY - GENERAL ORDERABLES Final Result Performing Organization Address [facility] Co de Phone Number [facility] [place] [address] * (ABNORMAL) CBC without differential (12/09/2024 7:47 AM PHONE OPERATOR) [facility] WBC 8.7 3.8 - 9.9 K/cumm Hgb 9.1(L) 11.9 - 15.5 g/dL [facility] Hct 28.8(L) 35.6 - 45.5 % [facility] Plt 224 150 - 400 K/cumm [facility] MPV 11.9 9.1 - 12.3 fL [facility] RBC 3.45(L) 3.90 - 5.20 M/cumm [facility] MCV 83.5 81.3 - 96.4 fL [facility] MCH 26.4(L) 27.1 - 33.3 pg [facility] MCHC 31.6(L) 32.3 - 35.7 g/dL [facility] RDW CV 14.8 11.1 - 14.9 % [facility] RDW SD 44.6 35.7 - 48.1 fL [facility] NRBC abs 0.00 0.00 - 0.01 K/cumm [facility] Blood 12/09/2024 7:47 AM PHONE OPERATOR 12/09/2024 8:05 AM PHONE OPERATOR Epi Guzman MD LAB BLOOD ORDERABLES Final Result Performing Organization Address City/[facility]/ZIP Co de Phone Number [facility] [place] [address] * Type and screen (12/09/2024 7:47 AM PHONE OPERATOR) Quintin, indirect Negative ABO Rh O Positive [facility] Blood 12/09/2024 7:47 AM PHONE OPERATOR 12/09/2024 8:08 AM PHONE OPERATOR Narrative [facility] - 12/09/2024 8:56 AM PHONE OPERATOR Has the patient had Daratumumab or Isatuximab in the past 6 months?->Unknown Epi Guzman MD LAB BLOOD BANK TEST ORDERAB LES Final Result Performing Organization Address City/[facility] Co de Phone Number [facility] [place] [address] * US Ob Limited (11/26/2024 1:34 PM PHONE OPERATOR) Fetus# Fetus1 VIEWPOINT Estimated Weight 2,673 g&grams VIEWPOINT Placenta Details posterior, Previa-no, no placental masses VIEWPOINT Presentation Vertex VIEWPOINT Anatomical Region Laterality Modality Abdomen N/A Ultrasound 11/26/2024 2:01 PM PHONE OPERATOR Impressions 11/26/2024 3:50 PM PHONE OPERATOR Yo IUP at 37w 1d who presents [...] 1d who presents for growth assessment in wmchealthtting of previously noted FGR. 1. Vertex presentation. 2. The interval growth has been appropriate. The EFW plots at the17% and AC 20%. growth restriction pattern is resolved. 3. The amniotic fluid volume is normal. These results have been communicated to the patient's OBGYN provider. Irma Siu MD [facility] OB US PROCEDURE S Final Result * US Ob Limited (11/19/2024 12:25 PM PHONE OPERATOR) Fetus# Fetus1 VIEWPOINT Placenta Details posterior, Previa-no, no placental masses VIEWPOINT Presentation Vertex VIEWPOINT Anatomical Region Laterality Modality Abdomen N/A Ultrasound 11/19/2024 12:5 2 PM PHONE OPERATOR Impressions 11/19/2024 1:23 PM PHONE OPERATOR 36w 1d IUP with known FGR for [...] Normal ERNESTINE, 13.6 cm. Irma Siu MD [facility] OB US PROCEDURE S Final Result * ROM Plus (IGFBP-1/AFP) (11/14/2024 11:42 AM PHONE OPERATOR) IFG Binding Protein-1 / AFP Negative Swab 11/14/2024 11:4 2 AM PHONE OPERATOR 11/14/2024 12:00 PM PHONE OPERATOR us Mely Rowland SHOW DOG TRAINER LAB BODY FLUIDS AN D STOOLS ORDERABLES Final Result [facility] Department [place] [address] * US Ob Limited (11/05/2024 10:21 AM PHONE OPERATOR) Fetus# Fetus1 VIEWPOINT Estimated Weight 2,021 g&grams VIEWPOINT Placenta Details posterior, Previa-no, no placental masses VIEWPOINT Presentation Vertex VIEWPOINT Anatomical Region Laterality Modality Abdomen N/A Ultrasound 11/05/2024 10:3 3 AM PHONE OPERATOR Impressions 11/05/2024 11:20 AM PHONE OPERATOR Yo IUP at 34w 1d who presents [...] are normal, PI 76%. us Adelina Herrera SHOW DOG TRAINER IMG OB US PROCEDURES Final Result * US Ob Limited (10/22/2024 12:32 PM PHONE OPERATOR) Fetus# Fetus1 VIEWPOINT Placenta Details posterior, Previa-no, no placental masses VIEWPOINT Presentation Vertex VIEWPOINT Anatomical Region Laterality Modality Abdomen N/A Ultrasound 10/22/2024 12:3 3 PM PHONE OPERATOR Impressions 10/22/2024 1:19 PM PHONE OPERATOR 32w 1d IUP with known FGR for [...] presentation. Normal ERNESTINE, 16 cm. Adelina Herrera NP IMG OB US PROCEDURES Final Result * Protein / creatinine ratio, urine, random (10/08/2024 6:23 PM PHONE OPERATOR) Protein, ur, quant 16.4 mg/dL Comment: Interpretive Data No reference range established. Current interpretive data was last revised 2019. Creatinine Ur 133.5 mg/dL [facility] Comment: Interpretive Data No reference range established. Current interpretive data was last revised 2019. Protein/creatinin e ratio 122.8 0.0 - 180.0 mg/g CR [facility] Urine 10/08/2024 6:23 PM PHONE OPERATOR 10/08/2024 7:17 PM PHONE OPERATOR Adelina Herrera NP LAB URINE ORDERABLES Final Result [facility] Department [place] [address] * (ABNORMAL) Urine culture Urine, clean voided (10/08/2024 4:03 PM PHONE OPERATOR) Report Final Report: Less than 100,000 colonies/mL [...] allergic patients, please contact the laboratory at [phone] to request susceptibility testing * ??* ??* [...] periurethral danya. (.) Organism (CLINICALLY INSIGNIFICANT GR[facility] Organism STREPTOCOCCUS AGALACTIAE (GROUP B STREPTOCOCCI) [facility] Urine, clean voided 10/08/2024 4:03 PM PHONE OPERATOR 10/08/2024 7:46 PM PHONE OPERATOR Narrative [facility] - 10/10/2024 4:17 PM PHONE OPERATOR Testing performed by [facility] ([phone]) Adelina Herrera NP LAB MICROBIOLOGY - GENERAL ORDERABLES Final Result [facility] Department [place] [address] * eGFR (10/08/2024 3:07 PM PHONE OPERATOR) eGFR >90 >=60 mL/min/1. 73 m2 Comment: [...] last reviewed 2021. Blood 10/08/2024 3:07 PM PHONE OPERATOR 10/08/2024 3:44 PM PHONE OPERATOR Adelina Herrera NP LAB BLOOD ORDERABLES Final Result [facility] Department [place] [address] * GTT 50gm 1hr gestational screen (10/08/2024 3:07 PM PHONE OPERATOR) GTT 50g gest screen 96 <=140 mg/dL [...] revised on 2021. Blood 10/08/2024 3:07 PM PHONE OPERATOR 10/08/2024 3:35 PM PHONE OPERATOR Adelina Herrera LAB BLOOD ORDERABLES Final Result Performing Organization Address [facility] Co de Phone Number [facility] [place] [address] * HIV 1/2 Antibody plus p24 Antigen Blood (10/08/2024 3:07 PM PHONE OPERATOR) [facility] HIV 1/2 ab + p24 ag Nonreactive Nonreactive Comment:Nonreactive for HIV- 1 antigen and HIV-1/HIV-2 antibodies. No laboratory evidence of HIV infection. If acute HIV infection is suspected, consider testing for HIV-1 RNA. Current interpretive data was last revised on 22. Blood 10/08/2024 3:07 PM PHONE OPERATOR 10/08/2024 3:35 PM PHONE OPERATOR Adelina Herrera NP LAB MICROBIOLOGY - GENERAL ORDERABLES Final Result Performing Organization Address [facility] de Phone Number [facility] [place] [address] * (ABNORMAL) Hemoglobin analysis by electrophoresis (10/08/2024 3:07 PM PHONE OPERATOR) [facility] RBC 3.54(L) 3.90 - 5.20 M/cumm Hgb 9.9(L) 11.9 - 15.5 g/dL [facility] MCV 86.4 81.3 - 96.4 fL [facility] Rdw 13.7 11.1 - 14.9 % [facility] Hgb electrophores is, interp Normal Hemoglobin Pattern - For Age [facility] Hgb A 97.7 96.0 - 98.5 % [facility] Hgb A2 2.3 1.5 - 3.2 % [facility] Hgb F <0.4 0.0 - 0.9 % [facility] Blood 10/08/2024 3:07 PM PHONE OPERATOR 10/08/2024 3:35 PM PHONE OPERATOR Adelina Herrera NP LAB BLOOD ORDERABLES Final Result Performing Organization Address City/[facility] Co de Phone Number [facility] [place] [address] * Hepatitis C antibody Blood (10/08/2024 3:07 PM PHONE OPERATOR) Pathologist [facility] Hep C Ab Nonreactive Nonreactive Comment:Antibodies to HCV no t detected. Does NOT exclude the possibility of recent exposure to HCV. Current interpretive data was last revised on 22 Blood 10/08/2024 3:07 PM PHONE OPERATOR 10/08/2024 3:35 PM PHONE OPERATOR Adelina Herrera NP LAB MICROBIOLOGY - GENERAL ORDERABLES Final Result Performing Organization Address [facility] de Phone Number [facility] [place] [address] * Rubella IgG antibody Blood (10/08/2024 3:07 PM PHONE OPERATOR) Pathologist [facility] Rubella IgG Reactive Comment:Reactive: Results robles ggest response to immunization or prior exposure to the virus. Blood 10/08/2024 3:07 PM PHONE OPERATOR 10/08/2024 3:35 PM PHONE OPERATOR Adelina Herrera NP LAB MICROBIOLOGY - GENERAL ORDERABLES Final Result Performing Organization Address City/[facility] Co de Phone Number [facility] [place] [address] * RPR Blood (10/08/2024 3:07 PM PHONE OPERATOR) [facility] RPR Nonreactive Nonreactive Blood 10/08/2024 3:07 PM PHONE OPERATOR 10/08/2024 3:35 PM PHONE OPERATOR Adelina Herrera NP LAB MICROBIOLOGY - GENERAL ORDERABLES Final Result Performing Organization Address [facility] Co de Phone Number [facility] Department [place] [address] * Hepatitis B Surface Antigen Blood (10/08/2024 3:07 PM PHONE OPERATOR) [facility] HepBsAg Nonreactive Nonreactive Blood 10/08/2024 3:07 PM PHONE OPERATOR 10/08/2024 3:35 PM PHONE OPERATOR Adelina Herrera NP LAB MICROBIOLOGY - GENERAL ORDERABLES Final Result Performing Organization Address [facility] de Phone Number [facility] Department [place] [address] * (ABNORMAL) CBC without differential (10/08/2024 3:07 PM PHONE OPERATOR) [facility] WBC 9.8 3.8 - 9.9 K/cumm Hgb 9.8(L) 11.9 - 15.5 g/dL [facility] Hct 30.1(L) 35.6 - 45.5 % [facility] Plt 292 150 - 400 K/cumm [facility] MPV 10.7 9.1 - 12.3 fL [facility] RBC 3.49(L) 3.90 - 5.20 M/cumm [facility] MCV 86.2 81.3 - 96.4 fL [facility] MCH 28.1 27.1 - 33.3 pg [facility] MCHC 32.6 32.3 - 35.7 g/dL [facility] RDW CV 13.8 11.1 - 14.9 % [facility] RDW SD 42.8 35.7 - 48.1 fL [facility] NRBC abs 0.00 0.00 - 0.01 K/cumm [facility] Blood 10/08/2024 3:07 PM PHONE OPERATOR 10/08/2024 3:35 PM PHONE OPERATOR Adelina Herrera NP LAB BLOOD ORDERABLES Final Result Performing Organization Address City/[facility]/ZIP Co de Phone Number [facility] [place] [address] * Type and screen (10/08/2024 3:07 PM PHONE OPERATOR) Pathologist [facility] Quintin, indirect Negative ABO Rh O Positive [facility] Blood 10/08/2024 3:07 PM PHONE OPERATOR 10/08/2024 3:55 PM PHONE OPERATOR Narrative [facility] - 10/08/2024 5:07 PM PHONE OPERATOR Has the patient had Daratumumab or Isatuximab in the past 6 months?->Unknown Adelina Herrera NP LAB BLOOD BANK TEST ORDERAB LES Final Result Performing Organization Address [facility] [place] [address] * (ABNORMAL) Varicella Zoster IgG antibody Blood (10/08/2024 3:07 PM PHONE OPERATOR) Pathologist [facility] VZV IgG Nonreacti ve(A) Reactive Comment:Non-reactive: No det ectable antibody to Varicella-zoster virus.??Such individuals are presumed to be uninfected and to be susceptible to primary infection. Blood 10/08/2024 3:07 PM PHONE OPERATOR 10/08/2024 3:35 PM PHONE OPERATOR Adelina Herrera NP LAB MICROBIOLOGY - GENERAL ORDERABLES Final Result Performing Organization Address City/[facility]/ZIP Co de Phone Number [facility] [place] [address] * Hemoglobin A1c (10/08/2024 3:07 PM PHONE OPERATOR) [facility] Hgb A1C 5.2 4.0 - 5.6 % Estimated Average Glucose 103 mg/dL [facility] Comment: The ADA recommends reporting an estimated Average Glucose (eAG) with all Hemoglobin A1c results using the equation derived from a study of 507 normal and diabetic adults. ??Minority populations were underrepresented and children were not included. ?? (Diabetes Care 2020; 43(S1): S66-S76). ??The eAG is not equivalent to a fasting glucose. Blood 10/08/2024 3:07 PM PHONE OPERATOR 10/08/2024 3:35 PM PHONE OPERATOR Adelina Herrera NP LAB BLOOD ORDERABLES Final Result Performing Organization Address [facility] Co de Phone Number [facility] [place] [address] * Ferritin (10/08/2024 3:07 PM PHONE OPERATOR) [facility] Ferritin 34 13 - 150 ng/mL Blood 10/08/2024 3:07 PM PHONE OPERATOR 10/08/2024 3:35 PM PHONE OPERATOR Adelina Herrera NP LAB BLOOD ORDERABLES Final Result Performing Organization Address City/[facility] de Phone Number [facility] [place] [address] * Comprehensive metabolic panel (10/08/2024 3:07 PM PHONE OPERATOR) [facility] Sodium 142 135 - 145 mmol/L Potassium, pl 3.6 3.3 - 4.9 mmol/L [facility] Chloride 108 97 - 110 mmol/L [facility] CO2 23 22 - 32 mmol/L [facility] Anion gap 11 2 - 15 mmol/L [facility] BUN 8 6 - 25 mg/dL [facility] Creatinine 0.61 0.60 - 1.10 mg/dL [facility] Glucose 107 70 - 199 mg/dL [facility] Comment: Interpretive Data Fasting glucose >/= 126 [...] classification and Diagnosis of Diabetes Diabetes Care 2021; 46: S19-S40. Current interpretive data was last revised 2022. Calcium 9.2 8.5 - 10.3 mg/dL [facility] Bilirubin, total 0.2 0.1 - 1.2 mg/dL [facility] Protein, pl 6.7 6.5 - 8.5 g/dL [facility] Albumin 3.6 3.5 - 5.0 g/dL [facility] Alk phos 114 40 - 130 Units/L [facility] ALT 13 7 - 45 Units/L [facility] AST 19 10 - 45 Units/L [facility] Blood 10/08/2024 3:07 PM PHONE OPERATOR 10/08/2024 3:35 PM PHONE OPERATOR Adelina Herrera NP LAB BLOOD ORDERABLES Final Result [facility] Department [place] [address] * US OB 14 Weeks Or Over (10/06/2024 8:38 AM PHONE OPERATOR) Fetus# Fetus1 VIEWPOINT Estimated Weight 1,290 g&grams VIEWPOINT Placenta Details posterior, Previa-no, no placental masses VIEWPOINT Presentation Vertex VIEWPOINT Anatomical Region Laterality Modality Abdomen N/A Ultrasound 10/06/2024 9:04 AM PHONE OPERATOR Impressions 10/06/2024 11:34 AM PHONE OPERATOR biometry is small for gestation with the [...] Reassuring BPP & normal UA Doppler studies Adelina Herrera SHOW DOG TRAINER IMG OB US PROCEDURES Final Result * N. gonorrhoeae/C. trachomatis Amplification Urine (09/27/2024 1:26 PM CDT) C. trachomatis Not Detected Not Detected [facility] N. gonorrhoeae Not Detected Not Detected [facility] Comment: Interpretive Data This assay detects Chlamydia trachomatis and Neisseria gonorrhoeae by nucleic acid amplification testing (NAAT). This assay has been cleared by the [place] Food and Drug administration. The performance characteristics of this test have been verified by the [facility] laboratory. The performance characteristics of this test have not been evaluated in individuals less than 14 years of age. Current Interpretive Data last revised 2023. Urine (None) 09/27/2024 1:26 PM CDT 09/27/2024 1:39 PM CDT Jada Stephen NP LAB M ICROBIOLOGY - GENERAL ORDERABLES Final Result [facility] [place] [address] [facility] from Last 3 Months or Most Recently Relevant to Health Maintenance Insurance [facility] [place] [place] [address] [facility] Advance Directives For more information, please contact: [phone] * Full Code (Latest Code Status on [...] c ase of cardiopulmonary arrest Care Teams Machine Heel Builder Relationship Specialty Start Date End Date No, Physician PCP - General 10/31/20
== END 2025-01-03 16:19 | disposition home or self-care (01) ==
PROVIDERS: Emergency Provider Nurse Practitioner Family
DX: K02.9 Dental caries, unspecified (principal)
CPT/HCPCS: 99203; G0463